=== PATIENT | male | born 1960 | race Caucasian/White ===

== ENCOUNTER 2016-12-20 05:04 | Inpatient (IN) | payer OTHER ==
[~2016-12-20] VITALS: Ht 175.3 cm; Wt 147.4 kg
[2016-12-20] MEDS ORDERED: MORPHINE SULFATE INJ 4 MG/ML DISP.SYRIN ONE (05:19)
[2016-12-20] MEDS ORDERED: ONDANSETRON HCL/PF 4 MG/2 ML VIAL ONE (05:19)
--- NOTE | 2016-12-20 05:20 | NUR ---
56 YO MALE BB RA FROM SNF. PT IS ALERT X 3, C/O CHEST PAIN. PT DESCRIBES IT "SOMEONE IS SITTING ON MY CHEST" 12/04, NON RADIATING. PT AMBULATED TO ER BED, SKIN WARM AND DRY, RR EVEN AND UNLABORED. AWAITING ORDERS FROM PROVIDER
[2016-12-20] MEDS ORDERED: ONDANSETRON HCL/PF 4 MG/2 ML VIAL IVP ONE (05:30)
[2016-12-20] MEDS ORDERED: MORPHINE SULFATE INJ 2 MG/ML DISP.SYRIN IV ONE (05:30)
--- NOTE | 2016-12-20 05:30 | NUR ---
MEDICATED PT ORDERED
--- NOTE | 2016-12-20 05:33 | NUR ---
EMT AT BED SIDE FOR EVAL
[2016-12-20 05:37] LABS: BASOPHILS # (AUTO) 0.1 /CMM (0.0-0.2); BASOPHILS % (AUTO) 0.7 % (0.0-2.0); EOSINOPHILS # (AUTO) 0.2 /CMM (0.0-0.7); EOSINOPHILS % (AUTO) 1.7 % (0.0-6.0); HEMATOCRIT 44 % (39-51); LYMPHOCYTES # (AUTO) 1.4 /CMM (0.8-4.8); LYMPHOCYTES % (AUTO) 10.4 % (20.0-44.0); MEAN CORPUSCULAR HEMOGLOBIN 27 PG (26.0-33.0); MEAN CORPUSCULAR HGB CONC 32 g/dl (31.0-36.0); MEAN CORPUSCULAR VOLUME 86 fL (80-96); MONOCYTES # (AUTO) 1.7 /CMM (0.1-1.30); MONOCYTES % (AUTO) 12.4 % (2.0-12.0); NEUTROPHILS # (AUTO) 10.1 /CMM (1.8-8.9); NEUTROPHILS % (AUTO) 74.8 % (43.0-81.0); PLATELET COUNT (AUTO) 190 /CMM (150-450); RDW COEFFICIENT OF VARIATION 18.8 (11.5-15.0); RED BLOOD CELL COUNT(AUTO) 5.12 MIL/uL (4.5-6.0); WHITE BLOOD COUNT (AUTO) 13.5 K/uL (4.3-11.0)
[2016-12-20 05:50] LABS: CALCIUM, SERUM 8.8 mg/dL (8.5-10.1); CARBON DIOXIDE 28 mmol/L (21-32); CHLORIDE 106 mmol/L (98-107); CREATININE 1.1 mg/dL (0.6-1.3); GLUCOSE 85 mg/dL (74-106); SODIUM SERUM 138 mmol/L (136-145); UREA NITROGEN, BLOOD 25 mg/dL (7-18)
[2016-12-20 05:54] LABS: INR 1.18 (0.87-1.13); PROTHROMBIN TIME 12.8 SECS (9.5-12.7)
--- NOTE | 2016-12-20 05:56 | NUR ---
TELE 316.2
[2016-12-20] MEDS ORDERED: SODIUM POLYSTYRENE SULFONATE 15 G/60 ML BOTTLE PO ONE (06:00)
[2016-12-20] MEDS ORDERED: ASPIRIN 81 MG TAB.CHEW PO ONE (06:00)
[2016-12-20] MEDS ORDERED: INSULIN REGULAR, HUMAN 100 UNIT/ML 10 ML VIAL IV ONE (06:00)
[2016-12-20] MEDS ORDERED: DEXTROSE 50%-WATER 50 ML DISP.SYRIN IV ONE (06:00)
[2016-12-20] MEDS ORDERED: SODIUM BICARBONATE SYR 50 MEQ/50 ML DISP.SYRIN IV ONE (06:00)
[2016-12-20] MEDS ORDERED: CALCIUM CHLORIDE 1,000 MG/10 ML DISP.SYRIN IV ONE (06:00)
[2016-12-20] MEDS ORDERED: FUROSEMIDE 40 MG/4 ML VIAL IV ONE (06:00)
[2016-12-20 06:02] LABS: TROPONIN I < 0.017 ng/mL (0.00-0.056)
[2016-12-20 06:04] LABS: ALANINE AMINOTRANSFERASE 22 U/L (12-78); ALBUMIN 2.6 g/dL (3.4-5.0); ALKALINE PHOSPHATASE 145 U/L (46-116); ASPARTATE AMINOTRANSFERASE 23 U/L (15-37); B-TYPE NATRIURETIC PEPTIDE 5605 PG/ML (0-125); BILIRUBIN,DIRECT 0.4 mg/dL (0.0-0.2); BILIRUBIN,TOTAL 0.7 mg/dL (0.2-1.0); TOTAL PROTEIN, SERUM 6.8 g/dL (6.4-8.2)
--- NOTE | 2016-12-20 06:19 | NUR ---
DILMA BUTTS TOOK REPORT
[2016-12-20] MEDS ORDERED: FUROSEMIDE 40 MG/4 ML VIAL ONE (06:23)
[2016-12-20] MEDS ORDERED: INSULIN REGULAR, HUMAN 100 UNIT/ML 10 ML VIAL ONE (06:25)
[2016-12-20] MEDS ORDERED: DEXTROSE 50%-WATER 50 ML DISP.SYRIN ONE (06:25)
[2016-12-20] MEDS ORDERED: SODIUM POLYSTYRENE SULFONATE 15 G/60 ML BOTTLE ONE (06:25)
[2016-12-20] MEDS ORDERED: ASPIRIN 81 MG TAB.CHEW ONE (06:25)
[2016-12-20] MEDS ORDERED: CALCIUM CHLORIDE 1,000 MG/10 ML DISP.SYRIN ONE (06:25)
[2016-12-20] MEDS ORDERED: NA P133E RC (06:30)
[2016-12-20] MEDS ORDERED: CARV3.122 PO (06:30)
[2016-12-20] MEDS ORDERED: DOCU-25 PO (06:30)
[2016-12-20] MEDS ORDERED: ATOR10TA PO (06:30)
[2016-12-20] MEDS ORDERED: PIPE3.376 IV (06:30)
[2016-12-20] MEDS ORDERED: LISI-607 PO (06:30)
[2016-12-20] MEDS ORDERED: ASPI-991 PO (06:30)
[2016-12-20] MEDS ORDERED: BISA10SU8 RC (06:30)
[2016-12-20] MEDS ORDERED: FURO-144 PO (06:30)
[2016-12-20] MEDS ORDERED: SIME80TA15 PO (06:30)
[2016-12-20] MEDS ORDERED: POTA10CA43 PO (06:30)
[2016-12-20] MEDS ORDERED: MAGN400O6 PO (06:30)
[2016-12-20] MEDS ORDERED: SENN8.6T6 PO (06:30)
[2016-12-20] MEDS ORDERED: HYDR-552 PO (06:30)
[2016-12-20] MEDS ORDERED: SPIR25TA4 PO (06:30)
--- NOTE | 2016-12-20 06:30 | NUR ---
MEDICATED PT ORDERED
--- NOTE | 2016-12-20 06:50 | NUR ---
CALLED PHARMACY FOR SODIUM BICARB. PER PHARMACY WE DO NOT CARRY SODIUM BICARB UNLESS THERE IS A CODE BLUE.
--- NOTE | 2016-12-20 07:15 | NUR ---
TRANSPORTED PT TO TELE BED WITHOUT INCIDENT
[2016-12-20] MEDS ORDERED: BISACODYL SUPP (10 MG) 10 MG/SUPP.RECT SUPP.RECT RC PRN (07:30)
[2016-12-20] MEDS ORDERED: SIMETHICONE 80 MG TAB.CHEW PO PRN (07:30)
[2016-12-20] MEDS ORDERED: Z GUARD REMEDY 2 OZ OINT TP PRN (07:30)
[2016-12-20] MEDS ORDERED: NA PHOS,M-B/NA PHOS,DI-BA 1 EA ENEMA RC PRN (07:30)
[2016-12-20] MEDS ORDERED: ACETAMINOPHEN 325 MG TABLET PO PRN (07:30)
[2016-12-20] MEDS ORDERED: MAGNESIUM HYDROXIDE 30 ML UDC PO PRN (07:30)
[2016-12-20] MEDS ORDERED: HYDROCODONE/APAP 5/325MG 1 EACH TABLET PO PRN (07:30)
[2016-12-20] MEDS ORDERED: MORPHINE SULFATE INJ 2 MG/ML DISP.SYRIN IV PRN (07:30)
[2016-12-20] MEDS ORDERED: ONDANSETRON HCL/PF 4 MG/2 ML VIAL IVP PRN (07:30)
[2016-12-20 08:00] VITALS: BP 85/53
--- NOTE | 2016-12-20 08:00 | NUR ---
SLIP INJECTOR AND APPLICATOR: ADMISSION NOTE PT TRANSFERRED FROM ER WITH CHEST PAIN FOR 1 MONTH. NO DISTRESS NOTED. NO PAIN NOTED. NO SOB NOTED. HOB ELEVATED. BLE +2 EDEMA NOTED. ELEVATED LEGS/ CONTINENT AND USES URINAL. CAN AMBULATE WITH ASSISTANCE. BLE CELLULITES. ON CARDIAC DIET. IV ON TERA. NO IV FLUIDS RUNNING. RESTING COMFORTABLY IN BED. CALL LIGHT WITHIN REACH.
[2016-12-20] MEDS: PANTOPRAZOLE 40 MG TABLET.DR PO SCH (08:43)
[2016-12-20] MEDS: DOCUSATE SODIUM 100 MG CAPSULE PO SCH (08:43)
[2016-12-20] MEDS: ASPIRIN EC 81 MG TABLET.DR PO SCH (08:43)
[2016-12-20] MEDS: ENOXAPARIN SODIUM 40 MG/0.4 ML DISP.SYRIN SQ SCH (08:47)
[2016-12-20 09:00] LABS: MAGNESIUM 2.2 mg/dL (1.8-2.4); PHOSPHORUS 3.8 mg/dL (2.5-4.9)
[2016-12-20] MEDS ORDERED: CARVEDILOL 3.125 MG TABLET PO SCH (09:00)
[2016-12-20] MEDS ORDERED: SPIRONOLACTONE 25 MG TABLET PO SCH (09:00)
[2016-12-20] MEDS ORDERED: BUMETANIDE INJ 8 MG in IV NS 0.9% 48 ML IV ONE (09:00)
[2016-12-20] MEDS ORDERED: LISINOPRIL (5MG) 5 MG TABLET PO SCH (09:00)
[2016-12-20] MEDS ORDERED: FUROSEMIDE 40 MG/4 ML VIAL IV SCH (09:00)
[2016-12-20 09:29] LABS: THYROID STIMULATING HORMONE 4.199 uIU/mL (0.358-3.74)
[2016-12-20] MEDS: LEVOFLOXACIN 750 MG /D5W 150ML 750 MG in PREMIX 1 EA IV SCH (09:55)
[2016-12-20 11:25] LABS: APPEARANCE,URINE SL CLOUDY (CLEAR); BILIRUBIN,URINE NEGATIVE (NEGATIVE); BLOOD, URINE NEGATIVE Ery/uL (NEGATIVE); COLOR,URINE YELLOW (YELLOW); KETONES,URINE NEGATIVE (NEGATIVE); LEUKOCYTE ESTERASE ,URINE NEGATIVE (NEGATIVE); NITRITE, URINE NEGATIVE (NEGATIVE); PROTEIN,URINE NEGATIVE (NEGATIVE); UGLUCOSE NEGATIVE (NEGATIVE); UROBILINOGEN,URINE 0.2 EU/dL (0.2)
--- NOTE | 2016-12-20 13:00 | NUR ---
DEBRIDEMENT AT BEDSIDE DONE BY MD ROSS ON BLE., TOLERATED WELL. LIDOCAIN GIVEN BY PRIOR TO PROCEDURE. CONSENT SIGNED BY PT. SITES CLEAN. DRESSING INTACT.
[2016-12-20] MEDS ORDERED: LIDOCAINE 1%-EPI 1:200,000 SDV 10 ML VIAL IJ ONE (14:00)
[2016-12-20 16:00] VITALS: BP 106/72
--- NOTE | 2016-12-20 18:25 | NUR ---
MED SURGE RN: CLOSING NOTE PT A/O X4. TOOK ALL MEDICATIONS ON TIME. NO ADVERSE REACTIONS NOTED. NO PAIN NOTED. NO SOB NOTED. NO N/V NOTED AFTER ADMINISTRATION OF ZOFRAN. BEDSIDE DEBRIDEMENT DONE BY MD SHERIDAN TO BLE. PT TOLERATED WELL. ALL SITES COVERED AND DRESSING INTACT. WOUND CULTURE OF RIGHT 1ST TOE PENDING. URINALYSIS PENDING. TERA IV SITE CLEAR. PATENT. NO IV FLUIDS RUNNING. RESTING COMFORTABLY IN BED. CALL LIGHT WITHIN REACH.
--- NOTE | 2016-12-20 20:00 | NUR ---
MS MEN'S GOLF COACH INITIAL NOTES PT SEEN IN BED WATCHING TV AT THIS TIME . HEPLOCK PATENT AND INTACT. NOT IN ANY DISCOMFORT NOTED. DRESSING ON BOTH LOWER LEGS DRY AND INTACT.STILL EDEMA AND CELLULITIS NOTED. SPOKE TO FL REGARDING HIS MEDICATION AND HE REFUSED TO HAVE HIS SENOKOT FOR TONIGHT BECAUSE HE'S HAVING BOWEL MOVEMENT 3 X ALREADY FOR THIS DAY AND HE'S TIRED. OFFERED SOME SNACK FOR TONIGHT AND HE STATED"OK THANK YOU". KEPT HIM WARM AND COMFORTABLE AT ALL TIMES. WILL CONTINUE TO MONITOR. PLACE CALL LIGHT AT REACH.
[2016-12-20 20:19] VITALS: BP 103/70
[2016-12-20] MEDS ORDERED: ATORVASTATIN 10 MG TABLET PO SCH (22:00)
[2016-12-20] MEDS: SENNOSIDES 8.6 MG TABLET PO SCH (22:00)
--- NOTE | 2016-12-21 | NUR ---
SALVAGE SUPERVISOR/NOTES PT SLEEPING COMFORTABLY IN BED WITHOUT ANY DISCOMFORT NOTED. KEPT HIM WARM AND COMFORTABLE AT ALL TIMES. WILL CONTINUE TO MONITOR. PLACE CALL LIGHT AT REACH.
--- NOTE | 2016-12-21 07:00 | NUR ---
MS DISTRICT MEDICAL EXAMINER CLOSING NOTES PT WOKE UP AND STARTED CLEANING AND DOING WOUND CARE TREATMENT. OFFLOAD BOTH LOWER LEGS. PICTURE ALSO TAKEN PER WOUND PROTOCOL. SLEPT WELL AND ALL NEEDS MET. STABLE NATALEE THE NIGHT AND NO SIGNS OF ANY DISCOMFORT NOTED NATALEE THE NIGHT. KEPT HIM WARM AND COMFORTABLE AT ALL TIMES. PLACE CALL LIGHT AT REACH. ENDORSE TO AM NURSE TRE/RN FOR CONTINUITY OF CARE.
[2016-12-21 07:25] LABS: BASOPHILS # (AUTO) 0.1 /CMM (0.0-0.2); BASOPHILS % (AUTO) 0.7 % (0.0-2.0); EOSINOPHILS # (AUTO) 0.2 /CMM (0.0-0.7); EOSINOPHILS % (AUTO) 1.4 % (0.0-6.0); HEMATOCRIT 43 % (39-51); HEMOGLOBIN 13.6 g/dL (13.5-17.5); LYMPHOCYTES # (AUTO) 1.1 /CMM (0.8-4.8); LYMPHOCYTES % (AUTO) 9.6 % (20.0-44.0); MEAN CORPUSCULAR HEMOGLOBIN 28 PG (26.0-33.0); MEAN CORPUSCULAR HGB CONC 32 g/dl (31.0-36.0); MEAN CORPUSCULAR VOLUME 87 fL (80-96); MONOCYTES # (AUTO) 1.7 /CMM (0.1-1.30); MONOCYTES % (AUTO) 14.2 % (2.0-12.0); NEUTROPHILS # (AUTO) 8.9 /CMM (1.8-8.9); NEUTROPHILS % (AUTO) 74.1 % (43.0-81.0); PLATELET COUNT (AUTO) 196 /CMM (150-450); RDW COEFFICIENT OF VARIATION 19.2 (11.5-15.0); RED BLOOD CELL COUNT(AUTO) 4.87 MIL/uL (4.5-6.0)
[2016-12-21 07:29] LABS: ALBUMIN 2.6 g/dL (3.4-5.0); BILIRUBIN,TOTAL 0.7 mg/dL (0.2-1.0); CALCIUM, SERUM 8.8 mg/dL (8.5-10.1); CREATININE 1.2 mg/dL (0.6-1.3); PHOSPHORUS 4.9 mg/dL (2.5-4.9); POTASSIUM 4.8 mmol/L (3.5-5.1); TOTAL PROTEIN, SERUM 6.7 g/dL (6.4-8.2)
[2016-12-21] MEDS: PANTOPRAZOLE 40 MG TABLET.DR PO SCH (07:30)
[2016-12-21 07:33] LABS: TROPONIN I 0.018 ng/mL (0.00-0.056)
--- NOTE | 2016-12-21 07:33 | NUR ---
MED SURGE RN: INITIAL NOTE PT A/OX 4. ON ROOM AIR. NO DISTRESS NOTED. NO PAIN NOTED. NO SOB NOTED. ON CARDIAC DIET. WOUNDS DRESSING INTACT. BLE EDEMA NOTED +2 PITTING. NO BLEEDING NOTED. IV RFA #18 PATENT. NO IV FLUIDS RUNNING. RESTING COMFORTABLY IN BED. CALL LIGHT WITHIN REACH.
[2016-12-21 07:35] LABS: MAGNESIUM 2.2 mg/dL (1.8-2.4)
[2016-12-21 07:44] LABS: THYROID STIMULATING HORMONE 3.096 uIU/mL (0.358-3.74)
[2016-12-21 08:00] VITALS: BP 102/69
[2016-12-21] MEDS: ASPIRIN EC 81 MG TABLET.DR PO SCH (08:05)
[2016-12-21] MEDS: LEVOFLOXACIN 750 MG /D5W 150ML 750 MG in PREMIX 1 EA IV SCH (08:06)
[2016-12-21] MEDS: ENOXAPARIN SODIUM 40 MG/0.4 ML DISP.SYRIN SQ SCH (08:15)
[2016-12-21] MEDS: DOCUSATE SODIUM 100 MG CAPSULE PO SCH (08:15)
[2016-12-21] MEDS ORDERED: BUMETANIDE INJ 8 MG in IV NS 0.9% 48 ML IV ONE (08:30)
--- NOTE | 2016-12-21 11:08 | NUR ---
WOUND CARE CONSULT: PT FOLLOWED BY ACCOUNT DEVELOPER FOR LOWER EXTREMITIES. DRESSINGS DRY AND INTACT AT THIS TIME AND NOT REMOVED. DEFER TO DPM FOR WOUND TREATMENT PLAN. PT ABLE TO TURN AND REPOSITION IN BED AND GETS UP TO COMMODE. CURRENT KIRT SCORE IS 23. RECOMMENDATIONS MADE FOR SKIN PROTECTION. DISCUSSED WITH NURSING STAFF. WILL SEE PRN. YAÑEZ IN AGREEMENT WITH PLAN OF CARE. BUTTOCK SCARS NOTED.
[2016-12-21] MEDS ORDERED: HYDROGEL DRESSING 90 GM TUBE TP PRN (11:30)
--- NOTE | 2016-12-21 11:37 | NUR ---
VERIFIED CONSENT FOR OR DEBRIDEMENT BY DR. ROSS. STATED CONSENT SHOULD SAY RIGHT AND LEFT LOWER EXTREMITY DEBRIDEMENT. NPO AT MIDNIGHT THE DAY BEFORE 12/21/16.
--- NOTE | 2016-12-21 12:45 | NUR ---
PT TAKEN DOWN TO DO MRI
[2016-12-21 13:15] LABS: *SPE A/G RATIO 0.9 (0.7-1.7); *SPE ALPHA-1-GLOBULIN 0.2 g/dL (0.0-0.4); *SPE ALPHA-2-GLOBULIN 0.6 g/dL (0.4-1.0); *SPE BETA GLOBULIN 1.1 g/dL (0.7-1.3); *SPE GLOBULIN, TOTAL 3.3 g/dL (2.2-3.9); *SPE M-SPIKE Not Observed g/dL (Not Observed); *SPE PROTEIN TOTAL 6.3 g/dL (6.0-8.5); *SPEGAMMA GLOBULIN 1.4 g/dL (0.4-1.8)
--- NOTE | 2016-12-21 14:10 | NUR ---
PT RETURNED FROM MRI PROCEDURE. NO DISTRESS NOTED. NO PAIN. RESTING IN BED COMFORTABLY.
[2016-12-21] MEDS: HYDROGEL DRESSING 90 GM TUBE TP SCH (15:45)
[2016-12-21 16:00] VITALS: BP 115/70
--- NOTE | 2016-12-21 16:18 | NUR ---
WOUND CARE: TREATMENT DONE MD ORDERED. R AND L LOWER LEGS= HYDROGEL/ MEPILEX/ AND KERLIX AND PLACE BURN NET OVER TO KEEP IN PLACE. R 2ND TOW AND LEFT 2ND TOE= APPLY BETADINE SOAKED IN GAUZE/ KERLIX. CHANGE DAILY. PT TOLERATED WELL.
--- NOTE | 2016-12-21 18:29 | NUR ---
MED SURGE RN: CLOSING NOTE PT A/0X4. NO DISTRESS NOTED. NO PAIN NOTED. NO SOB NOTED. TOOK ALL MEDICATIONS ON TIME. NO ADVERSE REACTIONS NOTED. IV ON RFA #18. SITE CLEAR, PATENT. NO IV FLUIDS RUNNING. BUMEX RUNNING FOR 8 HOURS ONLY ONCE A DAY. URINAL AT BEDSIDE AND COMMODE. WOUND CARE DONE ORDERED BY MD. PT TOLERATED WELL. SCHEDULED FOR OR WOUND DEBRIDEMENT OF BLE ON 12/22/16. SHOULD BE NPO BY MIDNIGHT. ALL CONSENTS SIGNED AND PLACED IN CHART. ATE ALL MEALS WITH NO N/V NOTED. RESTING COMFORTABLY IN BED. CALL LIGHT WITHIN REACH.
[2016-12-21 20:00] VITALS: BP 101/68
--- NOTE | 2016-12-21 20:00 | NUR ---
MS RN NOTES PATIENT RECEIVED USING HIS COMMODE NEXT TO HIS BED. NO C/O OF CHEST PAIN, NO SOB, NO ACUTE DISTRESS NOTED. TALKATIVE, A & O X 4. IV ACCESS TO RFA INTACT PATENT. NO S/S OF INFECTION AT IV SITE NOTED. BED IN LOW LOCKED POSITION. CALL LIGHT WITHIN REACH. OBSERVING CLOSELY.
[2016-12-21] MEDS: SENNOSIDES 8.6 MG TABLET PO SCH (21:35)
[2016-12-21 23:50] VITALS: BP 135/71
--- NOTE | 2016-12-22 01:00 | NUR ---
MS RN NOTES PATIENT SLEEPING COMFORTABLY IN SEMI CHOWDARY POSITION. NPO AFTER MIDNIGHT DUE TO SCHEDULED BLE DEBRIDEMENT IN AM. NO C/O PAIN NO DISCOMFORT NOTED. MONITORING CLOSELY.
--- NOTE | 2016-12-22 06:20 | NUR ---
MS RN NOTES PATIENT IS AWAKE,RESTING IN BED IN SEMI CHOWDARY POSITION. NPO SINCE MID NIGHT DUE TO BLE DEBRIDEMENT TODAY IN OR. NO C/O PAIN, NO SOB, NO ACUTE DISTRESS OR DISCOMFORT NOTED. IV ACCESS TO RFA, INTACT PATENT. SLEPT WELL AT NIGHT. BED IN LOW LOCKED POSITION. CALL LIGHT WITHIN REACH. WILL CONTINUE TO OBSERVE & WILL ENDORSE TO AM SHIFT NURSE.
--- NOTE | 2016-12-22 07:15 | NUR ---
RN MS NOTES PATIENT ALERT AND ORIENTED, NO DISTRESS NOTED, BREATHING EVEN AND UNLABORED, DENIES PAIN OR DISCOMFORT, PATIENT IS CURRENTLY NPO FOR WOUND DEBRIDEMENT TODAY, CONSENT SIGNED, CHECKLIST COMPLETED, NEEDS ATTENDED AND MET, SAFETY MEASURES IN PLACED, CALL LIGHT WITHIN REACH, WILL CONTINUE TO MONITOR.
[2016-12-22 07:27] LABS: ALBUMIN 2.6 g/dL (3.4-5.0); BILIRUBIN,TOTAL 0.7 mg/dL (0.2-1.0); CALCIUM, SERUM 8.6 mg/dL (8.5-10.1); CREATININE 1.1 mg/dL (0.6-1.3); PHOSPHORUS 4.3 mg/dL (2.5-4.9); POTASSIUM 4.1 mmol/L (3.5-5.1); TOTAL PROTEIN, SERUM 6.8 g/dL (6.4-8.2)
[2016-12-22] MEDS ORDERED: BUMETANIDE INJ 8 MG in IV NS 0.9% 48 ML IV ONE (07:30)
[2016-12-22] MEDS: PANTOPRAZOLE 40 MG TABLET.DR PO SCH (07:30)
[2016-12-22 07:38] LABS: BASOPHILS # (AUTO) 0.1 /CMM (0.0-0.2); BASOPHILS % (AUTO) 0.8 % (0.0-2.0); EOSINOPHILS # (AUTO) 0.2 /CMM (0.0-0.7); EOSINOPHILS % (AUTO) 1.4 % (0.0-6.0); HEMATOCRIT 43 % (39-51); HEMOGLOBIN 13.5 g/dL (13.5-17.5); LYMPHOCYTES # (AUTO) 1.2 /CMM (0.8-4.8); LYMPHOCYTES % (AUTO) 10.2 % (20.0-44.0); MEAN CORPUSCULAR HEMOGLOBIN 27 PG (26.0-33.0); MEAN CORPUSCULAR HGB CONC 32 g/dl (31.0-36.0); MEAN CORPUSCULAR VOLUME 87 fL (80-96); MONOCYTES # (AUTO) 1.6 /CMM (0.1-1.30); MONOCYTES % (AUTO) 13.4 % (2.0-12.0); NEUTROPHILS # (AUTO) 8.7 /CMM (1.8-8.9); NEUTROPHILS % (AUTO) 74.2 % (43.0-81.0); PLATELET COUNT (AUTO) 228 /CMM (150-450); RED BLOOD CELL COUNT(AUTO) 4.94 MIL/uL (4.5-6.0); WHITE BLOOD COUNT (AUTO) 11.7 K/uL (4.3-11.0)
[2016-12-22 08:00] VITALS: BP 93/56
[2016-12-22] MEDS: HYDROGEL DRESSING 90 GM TUBE TP SCH (08:56)
[2016-12-22] MEDS: DOCUSATE SODIUM 100 MG CAPSULE PO SCH (08:56)
[2016-12-22] MEDS: ASPIRIN EC 81 MG TABLET.DR PO SCH (08:56)
[2016-12-22] MEDS: ENOXAPARIN SODIUM 40 MG/0.4 ML DISP.SYRIN SQ SCH (08:56)
[2016-12-22] MEDS: LEVOFLOXACIN 750 MG /D5W 150ML 750 MG in PREMIX 1 EA IV SCH (10:07)
--- NOTE | 2016-12-22 12:00 | NUR ---
RN MS NOTES PATIENT BROUGHT TO OR FOR WOUND DEBRIDEMENT
[2016-12-22] MEDS ORDERED: FENTANYL PF 100MCG/2ML AMPUL ONE (12:03)
[2016-12-22] MEDS ORDERED: MIDAZOLAM HCL 2 MG/2ML VIAL ONE (12:03)
[2016-12-22] MEDS ORDERED: LIDOCAINE 1% INJ 50 ML MDV IJ ONE (12:05)
[2016-12-22] MEDS ORDERED: BUPIVACAINE MPF W/EPI 0.25% 30 ML VIAL ONE (12:05)
--- NOTE | 2016-12-22 13:54 | NUR ---
RN MS NOTES PATIENT CAME BACK FROM OR DEPARTMENT, ALERT AND ORIENTED, NO S/SX OF DISTRESS, KEPT BLE ELEVATED, WILL CONTINUE TO MONITOR.
[2016-12-22 14:03] VITALS: BP 145/78
[2016-12-22] MEDS ORDERED: BUPIVACAINE 0.5 % PF 150 MG/30 ML VIAL ONE (14:25)
[2016-12-22] MEDS ORDERED: ANESTHESIA TRAY IN PYXIS 1 EA TRAY MC ONE (14:25)
--- NOTE | 2016-12-22 14:27 | NUR ---
RN MS NOTES PATIENT ATE LUNCH AND TOLERATED WELL, RECEIVED WITH HR 100, 99.9 TEMP, OFFERED TYLENOL, BUT PATIENT REFUSED, SPO2 IN ROOM AIR 86-90%, O2 AT 2LPM VIA NC ADMINISTERED WITH SPO2 OF 94-95%, PATIENT OBSERVED REMOVING NASAL CANNULA AT TIMES, RE-EDUCATED OF O2 BENEFITS AND RISKS, AND VERBALIZED UNDERSTANDING, IV MEDICATION RESUMED, PARTNER AT BEDSIDE, WILL CONTINUE TO MONITOR.
[2016-12-22 16:00] VITALS: BP 96/58
--- NOTE | 2016-12-22 19:53 | NUR ---
RN MS NOTES PATIENT ALERT AND ORIENTED X3, NO DISTRESS NOTED, DENIES PAIN OR DISCOMFORT, WOUND DRESSING ON BLE DRY AND INTACT, NO BLEEDING NOTED, BLE ELEVATED AT ALL TIMES, PARTNER AT BEDSIDE, ALL NEEDS ATTENDED AND MET, CALL LIGHT WITHIN REACH, VITAL SIGNS STABLE, AFEBRILE,SAFETY MEASURES IN PLACED, WILL ENDORSE TO AGENCY OWNER FOR THIERRY.
[2016-12-22 20:00] VITALS: BP 102/72
--- NOTE | 2016-12-22 20:00 | NUR ---
MS RN NOTES PATIENT RECEIVED SITTING IN BED, NO C/O CHEST PAIN NO DISCOMFORT NOTED AT THIS TIME. ASSESSED BLE, NO S/S OF BLEEDING OR DRAINAGE NOTED. IV ACCESS TO RFA, INTACT PATENT. INFORMED HIM TO ELEVATE HIS BLE TO DECREASE SWELLING & DISCOMFORT. BED IN LOW LOCKED POSITION. CALL LIGHT WITHIN REACH. WILL MONITOR CLOSELY.
[2016-12-22] MEDS: SENNOSIDES 8.6 MG TABLET PO SCH (22:00)
[2016-12-22 23:57] VITALS: BP 102/78
--- NOTE | 2016-12-23 02:05 | NUR ---
MS RN NOTES PATIENT SLEEPING INTERMITTENTLY. ASKED FOR SNACK, SNACK PROVIDED. NO C/O PAIN, NO DISCOMFORT NOTED. CALL LIGHT WITHIN REACH. OBSERVING CLOSELY.
--- NOTE | 2016-12-23 06:40 | NUR ---
MS RN NOTES PATIENT SLEPT INTERMITTENTLY, WATCHED TV IN BETWEEN. NO DISCOMFORT, NO C/O CHEST PAIN, RESP EVEN & NON LABORED. IN SEMI CHOWDARY POSITION. HAD SNACK IN BETWEEN AT NIGHT. NO BLEEDING/DRAINAGE NOTED AT WOUND DEBRIDEMENT SITE. DRESSING INTACT & CLEAN. ELEVATED BLE ORDERED. IN STABLE CONDITION. BED IN LOW LOCKED POSITION. CALL LIGHT WITHIN REACH. WILL ENDORSE TO AM SHIFT.
[2016-12-23 07:26] LABS: BASOPHILS # (AUTO) 0.1 /CMM (0.0-0.2); BASOPHILS % (AUTO) 0.6 % (0.0-2.0); EOSINOPHILS # (AUTO) 0.1 /CMM (0.0-0.7); EOSINOPHILS % (AUTO) 0.7 % (0.0-6.0); HEMATOCRIT 41 % (39-51); HEMOGLOBIN 13.3 g/dL (13.5-17.5); LYMPHOCYTES # (AUTO) 1.2 /CMM (0.8-4.8); LYMPHOCYTES % (AUTO) 10.1 % (20.0-44.0); MEAN CORPUSCULAR HEMOGLOBIN 28 PG (26.0-33.0); MEAN CORPUSCULAR HGB CONC 33 g/dl (31.0-36.0); MEAN CORPUSCULAR VOLUME 86 fL (80-96); MONOCYTES # (AUTO) 1.5 /CMM (0.1-1.30); MONOCYTES % (AUTO) 12.5 % (2.0-12.0); NEUTROPHILS # (AUTO) 9.1 /CMM (1.8-8.9); NEUTROPHILS % (AUTO) 76.1 % (43.0-81.0); PLATELET COUNT (AUTO) 232 /CMM (150-450); RDW COEFFICIENT OF VARIATION 19.1 (11.5-15.0); RED BLOOD CELL COUNT(AUTO) 4.72 MIL/uL (4.5-6.0); WHITE BLOOD COUNT (AUTO) 11.9 K/uL (4.3-11.0)
[2016-12-23] MEDS: PANTOPRAZOLE 40 MG TABLET.DR PO SCH (07:30)
--- NOTE | 2016-12-23 07:50 | NUR ---
m/s sap administrator: vascular f/u seen by dr. calderon with orders. orders acknowledged. consent obtained from pt re: cta abdominal aorta with runoff. x-ray tech at bedside and will sweet pickle maker pt in a couple of hours. breakfast served with hob elevated.
[2016-12-23 07:53] LABS: ALBUMIN 2.5 g/dL (3.4-5.0); BILIRUBIN,TOTAL 0.7 mg/dL (0.2-1.0); CALCIUM, SERUM 8.5 mg/dL (8.5-10.1); CREATININE 1.2 mg/dL (0.6-1.3); MAGNESIUM 1.9 mg/dL (1.8-2.4); PHOSPHORUS 3.9 mg/dL (2.5-4.9); POTASSIUM 3.9 mmol/L (3.5-5.1); TOTAL PROTEIN, SERUM 6.7 g/dL (6.4-8.2)
[2016-12-23 08:00] VITALS: BP 108/59
--- NOTE | 2016-12-23 08:00 | NUR ---
m/s billet grinder: cardio f/u seen and examined by dr. campuzano with orders. orders acknowledged.
[2016-12-23] MEDS: ASPIRIN EC 81 MG TABLET.DR PO SCH (08:28)
[2016-12-23] MEDS: POTASSIUM CHLORIDE 20 MEQ TAB.PRT.SR PO SCH ×2 (08:28→09:55)
[2016-12-23] MEDS: DOCUSATE SODIUM 100 MG CAPSULE PO SCH (08:29)
[2016-12-23] MEDS: ENOXAPARIN SODIUM 40 MG/0.4 ML DISP.SYRIN SQ SCH (08:29)
[2016-12-23] MEDS: HYDROGEL DRESSING 90 GM TUBE TP SCH (09:00)
[2016-12-23] MEDS ORDERED: BUMETANIDE INJ 8 MG in IV NS 0.9% 48 ML IV ONE (09:00)
[2016-12-23] MEDS: LEVOFLOXACIN 750 MG /D5W 150ML 750 MG in PREMIX 1 EA IV SCH (09:06)
--- NOTE | 2016-12-23 09:30 | NUR ---
m/s molded goods controls operator: dpm f/u seen by dr. finley and tx done to ble wounds, mary. well with verbal order to d'c hydrogel tx. order read back and carried out.
[2016-12-23] MEDS ORDERED: LINEZOLID RTU BAG 600 MG in PREMIX 1 EA IV SCH (11:30)
[2016-12-23] MEDS ORDERED: IV NS 0.9% 250 ML IV ONE (11:39)
[2016-12-23] MEDS ORDERED: IOHEXOL-350 100 ML VIAL IV ONE (11:39)
[2016-12-23 16:00] VITALS: BP 110/61
--- NOTE | 2016-12-23 17:00 | NUR ---
m/s retoucher photoengraving: id f/u seen by dr. boucher with orders. orders acknowledged. pt resting quietly in bed with girlfriend at bedside.
--- NOTE | 2016-12-23 18:45 | NUR ---
m/s client server programmer: notes resting comfortable in bed with call light within reach. needs attended. no apparent distress noted. will continue to monitor.
--- NOTE | 2016-12-23 19:30 | NUR ---
RN OPEN NOTES RECEIVED PATIENT AWAKE IN BED. A/O X3. NO SIGNS OF DISTRESS OR DISCOMFORT. BREATHING EVEN AND UNLABORED. IV ACCESS IN RFA WITH BUMEX CURRENTLY INFUSING, PATENT AND INTACT, NO SIGNS OF REDNESS OR INFILTRATION. DRESSINGS ON BLE C/D/I. ALL NEEDS MET. NO SIGNIFICANT CHANGES THROUGH THE NIGHT. BED IN LOW LOCKED POSITION WITH SIDE RAIL X2. CALL LIGHT WITHIN REACH. WILL CONTINUE TO MONITOR.
[2016-12-23 20:00] VITALS: BP 104/68
[2016-12-23 20:21] VITALS: BP 104/68
[2016-12-23] MEDS: MEROPENEM 1 G in IV NS 0.9% 100 ML IV SCH (21:38)
[2016-12-23] MEDS: SENNOSIDES 8.6 MG TABLET PO SCH (21:48)
[2016-12-24] MEDS: MEROPENEM 1 G in IV NS 0.9% 100 ML IV SCH ×3 (05:47→21:17)
[2016-12-24 07:54] LABS: ALBUMIN 2.7 g/dL (3.4-5.0); BILIRUBIN,TOTAL 0.9 mg/dL (0.2-1.0); CALCIUM, SERUM 8.7 mg/dL (8.5-10.1); CREATININE 1.2 mg/dL (0.6-1.3); MAGNESIUM 1.9 mg/dL (1.8-2.4); PHOSPHORUS 3.8 mg/dL (2.5-4.9); POTASSIUM 3.6 mmol/L (3.5-5.1); TOTAL PROTEIN, SERUM 6.7 g/dL (6.4-8.2)
--- NOTE | 2016-12-24 07:56 | NUR ---
RN CLOSING NOTES PATIENT AWAKE IN BED. A/O X3. NO SIGNS OF DISTRESS OR DISCOMFORT. BREATHING EVEN AND UNLABORED. IV ACCESS IN RFA, PATENT AND INTACT, NO SIGNS OF REDNESS OR INFILTRATION. DRESSINGS ON BLE C/D/I. ALL NEEDS MET. NO SIGNIFICANT CHANGES THROUGH THE NIGHT. BED IN LOW LOCKED POSITION WITH SIDE RAIL X2. CALL LIGHT WITHIN REACH. ENDORSED TO AM SHIFT FOR THIERRY.
[2016-12-24 08:00] VITALS: BP 97/63
[2016-12-24] MEDS ORDERED: BUMETANIDE INJ 8 MG in IV NS 0.9% 48 ML IV ONE (08:00)
--- NOTE | 2016-12-24 08:01 | NUR ---
RN NOTES RECEIVED PT. PT IS STABLE AND RESTING IN BED. A/OX3. NO S/S OF DISTRESS OR SOB. NO C/O PAIN AT THIS MOMENT. IV ACCESS LOCATED ON RIGHT FA, 18G CURRENTLY SL. NOTIFIED BY LAB THAT PT CO2 LEVEL = 41. WILL F/U WITH AND NOTIFY PROVIDER. SAFETY MEASURES IN PLACE, CALL LIGHT WITHIN REACH. WILL CONTINUE TO MONITOR.
[2016-12-24] MEDS: DOCUSATE SODIUM 100 MG CAPSULE PO SCH ×2 (09:00→09:08)
[2016-12-24] MEDS: PANTOPRAZOLE 40 MG TABLET.DR PO SCH (09:08)
[2016-12-24] MEDS: ASPIRIN EC 81 MG TABLET.DR PO SCH (09:08)
[2016-12-24] MEDS: ENOXAPARIN SODIUM 40 MG/0.4 ML DISP.SYRIN SQ SCH (09:10)
[2016-12-24] MEDS: POTASSIUM CHLORIDE 20 MEQ TAB.PRT.SR PO SCH ×3 (09:17→13:46)
[2016-12-24 16:00] VITALS: BP 96/70
--- NOTE | 2016-12-24 19:15 | NUR ---
MS RN OPENING NOTES: RECEIVED PT IN BED AND IS RESTING W/ HOB SEMI-CHOWDARY'S. GIRLFRIEND AT BEDSIDE. PT IS A/OX3. NO S/S OF DISTRESS OR SOB NOTED AT THIS TIME. PT DENIES ANY PAIN. PT HAS PICC LINE INSERTED IN R UPPER ARM AND IN INTACT AND PATENT WITH BUMEX BEING RAN. CALL LIGHT WITHIN PT'S REACH. BED KEPT IN LOW, LOCKED POSITION, AND SIDE RAILS X 2 UP. WILL CONTINUE TO MONITOR PT.
--- NOTE | 2016-12-24 19:47 | NUR ---
RN CLOSING NOTES PT IS IN BED RESTING. A/OX3. NO S/S OF DISTRESS OR SOB. NO C/O PAIN AT THIS TIME. DRESSING CHANGE PERFORMED FOR LE. PICC LINE INSERTED IN RIGHT EXTREMITY, INTACT AND PATENT. SAFETY MEASURES IN PLACE, CALL LIGHT IN REACH. WILL ENDORSE TO OUTSIDE PLANT FIELD ENGINEER FOR THIERRY.
[2016-12-24 20:00] VITALS: BP 103/69
[2016-12-24] MEDS: SENNOSIDES 8.6 MG TABLET PO SCH (21:35)
--- NOTE | 2016-12-24 21:36 | NUR ---
MS RN NOTES: PT IS REFUSING SENOKOT. PT VERBALIZED THAT HE IS HAVING DIARRHEA AND DOES NOT WANT TO TAKE SENOKOT.
[2016-12-25] MEDS: MEROPENEM 1 G in IV NS 0.9% 100 ML IV SCH ×2 (04:36→13:00)
--- NOTE | 2016-12-25 07:15 | NUR ---
MS RN CLOSING NOTES: ALL NEEDS WERE ATTENDED AND ANTICIPATED FOR. PT IS RESTING UP IN BED. PT IS AWAKE W/ HOB SEMI-CHOWDARY'S. PT IS A/OX3. NO S/S OF DISTRESS OR SOB NOTED AT THIS TIME. PT DENIES ANY PAIN. PT HAS PICC LINE INSERTED IN R UPPER ARM AND IN INTACT AND PATENT. CALL LIGHT WITHIN PT'S REACH. BED KEPT IN LOW, LOCKED POSITION, AND SIDE RAILS X 2 UP. ENDORSED TO AM NURSE FOR THIERRY.
[2016-12-25] MEDS: PANTOPRAZOLE 40 MG TABLET.DR PO SCH (07:30)
[2016-12-25 08:00] VITALS: BP 124/54
[2016-12-25] MEDS: ASPIRIN EC 81 MG TABLET.DR PO SCH (08:47)
[2016-12-25] MEDS: ENOXAPARIN SODIUM 40 MG/0.4 ML DISP.SYRIN SQ SCH (08:49)
[2016-12-25] MEDS: DOCUSATE SODIUM 100 MG CAPSULE PO SCH (08:49)
--- NOTE | 2016-12-25 14:24 | NUR ---
MS AIR SAMPLER NOTE: PATIENT DISCHARGE TO [facility] [address] [place] [address] VIA AMBULANCE REPORT GIVEN TO TIA RN IN SNF . PATIENT IN STABLE CONDITION NO S/S DISTRESS NOTED, VSS WNL, PATIENT WOUND DONE PER ORDER PICTURE TAKEN AND PLACED IN THE CHART, EXIT CARE DONE PRINTED SIGN AND GIVEN TO PT ALL BELONGINGS RETURNED TO PATIENT.
== END 2016-12-25 13:50 | DRG 951 ==
LOC: ER 05:08 → TELE 05:52 → MED 09:00
PROVIDERS: ADMIT Internal Medicine; ATTEND Internal Medicine
PROC: 0JBP0ZZ Excision of Left Lower Leg Subcutaneous Tissue and Fascia, Open Approach (ICD-10-PCS; principal; 2016-12-20)
PROC: 0JBN0ZZ Excision of Right Lower Leg Subcutaneous Tissue and Fascia, Open Approach (ICD-10-PCS; principal; 2016-12-20)
PROC: 0JBN0ZZ Excision of Right Lower Leg Subcutaneous Tissue and Fascia, Open Approach (ICD-10-PCS; 2016-12-22)
PROC: 0QBR0ZZ Excision of Left Toe Phalanx, Open Approach (ICD-10-PCS; 2016-12-22)
PROC: 0JBP0ZZ Excision of Left Lower Leg Subcutaneous Tissue and Fascia, Open Approach (ICD-10-PCS; 2016-12-22)
PROC: 02HV33Z Insertion of Infusion Device into Superior Vena Cava, Percutaneous Approach (ICD-10-PCS; 2016-12-24)
PROC: B548ZZA Ultrasonography of Superior Vena Cava, Guidance (ICD-10-PCS; 2016-12-24)
DX: I11.0 Hypertensive heart disease with heart failure (principal); J96.01 Acute respiratory failure with hypoxia; E43 Unspecified severe protein-calorie malnutrition; D68.59 Other primary thrombophilia; E11.52 Type 2 diabetes mellitus with diabetic peripheral angiopathy with gangrene; I42.9 Cardiomyopathy, unspecified; M00.9 Pyogenic arthritis, unspecified; E11.40 Type 2 diabetes mellitus with diabetic neuropathy, unspecified; E11.621 Type 2 diabetes mellitus with foot ulcer; E11.69 Type 2 diabetes mellitus with other specified complication; I50.31 Acute diastolic (congestive) heart failure; I48.91 Unspecified atrial fibrillation; L03.115 Cellulitis of right lower limb; L03.116 Cellulitis of left lower limb; L97.529 Non-pressure chronic ulcer of other part of left foot with unspecified severity; M86.60 Other chronic osteomyelitis, unspecified site; E66.01 Morbid (severe) obesity due to excess calories; E78.5 Hyperlipidemia, unspecified; E87.5 Hyperkalemia; I25.10 Atherosclerotic heart disease of native coronary artery without angina pectoris; Z68.42 Body mass index [BMI] 45.0-49.9, adult; I83.028 Varicose veins of left lower extremity with ulcer other part of lower leg; L97.829 Non-pressure chronic ulcer of other part of left lower leg with unspecified severity; I83.018 Varicose veins of right lower extremity with ulcer other part of lower leg; L97.819 Non-pressure chronic ulcer of other part of right lower leg with unspecified severity; M86.172 Other acute osteomyelitis, left ankle and foot; Z89.421 Acquired absence of other right toe(s)
CPT/HCPCS: 36415; 36569; 71010-TC; 73630-TC; 73718-TC; 80048-TC; 80053-TC; 80061-TC; 80076-TC; 81000-TC; 82306; 82962-TC; 83735-TC; 83880; 84100-TC; 84155; 84165; 84439-TC; 84443-TC; 84484-TC; 85025-TC; 85652-TC; 85730-TC; 87070-TC; 87081-TC; 87186-TC; 93307-TC; A4216; A4606; A6209; A6248; A6402; A6403; C1751; J1650; J1815; J1940; J1956; J2020; J2185; J2250; J2270; J2405; J2704; J3010; J3490; J7030; J7050; Q9967; Z7610

== ENCOUNTER 2020-08-18 11:23 | Inpatient (IN) | payer OTHER ==
[~2020-08-18] VITALS: Ht 182.9 cm; Wt 117.7 kg
[~2020-08-18 11:23] MED LIST: ASPI-1420 PO; ATOR10TA PO; BISA10SU8 RC; CARV3.122 PO; DOCU-141 PO; FURO-144 PO; HYDR-4384 PO; LISI-768 PO; MAGN400O6 PO; NA P133E RC; PIPE3.376 IV; SENN-261 PO; SIME80TA15 PO; SPIR25TA6 PO
[2020-08-18] MEDS ORDERED: CEFEPIME 1 GM in IV D5W 50 ML IV ONE (12:00)
[2020-08-18 12:02] LABS: BASOPHILS # (AUTO) 0.2 /CMM (0.0-0.2); BASOPHILS % (AUTO) 1.1 % (0.0-2.0); EOSINOPHILS % (AUTO) 1.4 % (0.0-6.0); HEMATOCRIT 43 % (39-51); HEMOGLOBIN 13.8 g/dL (13.5-17.5); LYMPHOCYTES # (AUTO) 1.8 /CMM (0.8-4.8); LYMPHOCYTES % (AUTO) 9.8 % (20.0-44.0); MEAN CORPUSCULAR HGB CONC 32 g/dl (31.0-36.0); MEAN CORPUSCULAR VOLUME 87 fL (80-96); MONOCYTES # (AUTO) 1.5 /CMM (0.1-1.30); MONOCYTES % (AUTO) 8.4 % (2.0-12.0); NEUTROPHILS # (AUTO) 14.2 /CMM (1.8-8.9); NEUTROPHILS % (AUTO) 79.3 % (43.0-81.0); PLATELET COUNT (AUTO) 473 /CMM (150-450); RED BLOOD CELL COUNT(AUTO) 4.88 MIL/uL (4.5-6.0); WHITE BLOOD COUNT (AUTO) 17.9 K/uL (4.3-11.0)
[2020-08-18 12:08] LABS: CALCIUM, SERUM 9.4 mg/dL (8.5-10.1); CARBON DIOXIDE 28 mmol/L (21-32); CHLORIDE 99 mmol/L (98-107); CREATININE 1.4 mg/dL (0.6-1.3); GLUCOSE 107 mg/dL (74-106); POTASSIUM 4.1 mmol/L (3.5-5.1); SODIUM SERUM 136 mmol/L (136-145); UREA NITROGEN, BLOOD 23 mg/dL (7-18)
--- NOTE | 2020-08-18 12:08 | NUR ---
[id number] FROM AN URGENTCARE C/O BLE PAIN X 1 WEEK. PROVIDER CALLED 911 PER PARAMEDICS, PROVIDER UNABLE TO TREAT PATIENT. PT AAOX4, VSS. RR EVEN & UNLABORED. DENIES CP, SOB, DIZZINESS, N/V AT THIS TIME. PT SEEN & EVAL'D BY DR. MILLER. MEDICATED ORDERED, PT CHUCK WELL. WILL CONT TO MONITOR.
[2020-08-18 12:15] LABS: ALANINE AMINOTRANSFERASE 17 U/L (12-78); ALBUMIN 3.2 g/dL (3.4-5.0); ALKALINE PHOSPHATASE 179 U/L (46-116); ASPARTATE AMINOTRANSFERASE 20 U/L (15-37); BILIRUBIN,DIRECT 0.2 mg/dL (0.0-0.2); BILIRUBIN,TOTAL 1.3 mg/dL (0.2-1.0); TOTAL PROTEIN, SERUM 7.6 g/dL (6.4-8.2)
[2020-08-18] MEDS ORDERED: DULO20CA PO (12:46)
[2020-08-18] MEDS ORDERED: METF-440 PO (12:46)
[2020-08-18] MEDS ORDERED: GLIM1TAB18 PO (12:46)
[2020-08-18] MEDS ORDERED: METO25TA20 PO (12:46)
[2020-08-18] MEDS ORDERED: ALLO300T2 PO (12:46)
--- NOTE | 2020-08-18 13:17 | NUR ---
DR MILLER TALKING TO MD GARG AT [facility] FOR PLAN OF CARE.
--- NOTE | 2020-08-18 13:48 | NUR ---
LAB CALLED RE: COVID NEGATIVE RESULT.
--- NOTE | 2020-08-18 14:02 | NUR ---
PT RESTING, VSS, RR EVEN & UNALABORED. NAD NOTED AT THIS THIS TIME. WILL CONT TO MONITOR. AWAITING TRANSFER TO [facility].
--- NOTE | 2020-08-18 15:45 | NUR ---
WATER SERVER NOTE RECEIVED PT IN BED 306-1. PT AWAKE IN BED. A/O X3 AND CROATIAN SPEAKING. NO COMPLAINT OF PAIN OR NAUSEA. CURRENTLY ON RA WITH NO SOB OR RESPIRATORY DISTRESS PRESENT. NO EDEMA PRESENT. SKIN REDNESS ON RLE AND ULCERS PRESENT ON B FEET. R FA REDNESS PRESENT. PICTURES TAKEN AND WOUND CONSULT ORDERED. SELF AMBULATORY WITH STANDBY ASSIST. HL PRESENT ON R AC 22G. SAFETY MEASURES IN PLACE. SIDE RAILS RAISED. BED LOWERED. CALL LIGHT WITHIN REACH. WILL CONTINUE TO MONITOR.
[2020-08-18] MEDS ORDERED: MAGNESIUM HYDROXIDE 30 ML UDC PO PRN (17:00)
[2020-08-18] MEDS ORDERED: MAG HYDROX/AL HYDROX/SIMETH 30 ML UDC PO PRN (17:00)
[2020-08-18] MEDS ORDERED: ACETAMINOPHEN 325 MG TABLET PO PRN (17:00)
[2020-08-18] MEDS ORDERED: HYDROCODONE/APAP 5/325MG TABLET PO PRN (17:00)
[2020-08-18] MEDS ORDERED: MORPHINE SULFATE INJ 2 MG/ML DISP.SYRIN IV PRN (17:00)
[2020-08-18] MEDS ORDERED: ONDANSETRON HCL/PF 4 MG/2 ML VIAL IVP PRN (17:00)
[2020-08-18] MEDS ORDERED: IV 1/2NS 1000 ML 1,000 ML IV PRN (17:00)
[2020-08-18] MEDS ORDERED: ZOLPIDEM TARTRATE 5 MG TABLET PO PRN (17:00)
[2020-08-18] MEDS ORDERED: Z GUARD REMEDY 2 OZ OINT TP PRN (17:00)
[2020-08-18 17:04] VITALS: BP 97/56
[2020-08-18 17:12] VITALS: BP 97/56
--- NOTE | 2020-08-18 19:30 | NUR ---
RN OPENING NOTE PATIENT IN BED AWAKE, A/O X 4. ABLE TO MAKE NEEDS KNOWN. BREATHING EVEN AND UNLABORED, TOLERATING ROOM AIR. BLE REDNESS PRESENT, ULCERS PRESENT ON BOTH FEET WELL. PATIEMT DOES NOT COMPLAIN OF PAIN OR DISCOMFORT AT THIS TIME. SAFETY MEASURES IN PLACE: BED IN LOCKED AND LOWEST POSITION, SIDE RAILS UP, CALL LIGHT WITHIN REACH. WILL MONITOR PATIENT CLOSELY.
--- NOTE | 2020-08-18 19:38 | NUR ---
RN CLOSING NOTE PT AWAKE IN BED. A/O X3 AND UKRAINIAN SPEAKING. NO COMPLAINT OF PAIN OR NAUSEA. CURRENTLY ON RA WITH NO SOB OR RESPIRATORY DISTRESS PRESENT. NO EDEMA PRESENT. SKIN REDNESS ON RLE AND ULCERS PRESENT ON B FEET. R FA REDNESS PRESENT. PICTURES TAKEN AND WOUND CONSULT ORDERED. SELF AMBULATORY WITH STANDBY ASSIST. HL PRESENT ON R AC 22G. SAFETY MEASURES IN PLACE. SIDE RAILS RAISED. BED LOWERED. CALL LIGHT WITHIN REACH. REPORT GIVEN TO NIGHT NURSE FOR THIERRY.
[2020-08-18 20:00] VITALS: BP 111/50
[2020-08-18] MEDS: HEPARIN SODIUM, PORCINE 5000 UNITS/1 ML VIAL SQ SCH (21:45)
--- NOTE | 2020-08-18 23:45 | NUR ---
R HAND 22 G INSERTED.
[2020-08-19] MEDS: CEFEPIME 2 GM in IV D5W 100 ML IV SCH ×2 (00:05→11:00)
[2020-08-19 06:23] LABS: BASOPHILS # (AUTO) 0.1 /CMM (0.0-0.2); BASOPHILS % (AUTO) 0.8 % (0.0-2.0); EOSINOPHILS % (AUTO) 3.2 % (0.0-6.0); HEMATOCRIT 39 % (39-51); HEMOGLOBIN 12.7 g/dL (13.5-17.5); LYMPHOCYTES # (AUTO) 1.5 /CMM (0.8-4.8); LYMPHOCYTES % (AUTO) 12.7 % (20.0-44.0); MEAN CORPUSCULAR HGB CONC 32 g/dl (31.0-36.0); MEAN CORPUSCULAR VOLUME 88 fL (80-96); MONOCYTES # (AUTO) 1.2 /CMM (0.1-1.30); MONOCYTES % (AUTO) 10.4 % (2.0-12.0); NEUTROPHILS # (AUTO) 8.4 /CMM (1.8-8.9); NEUTROPHILS % (AUTO) 72.9 % (43.0-81.0); PLATELET COUNT (AUTO) 384 /CMM (150-450); RED BLOOD CELL COUNT(AUTO) 4.48 MIL/uL (4.5-6.0); WHITE BLOOD COUNT (AUTO) 11.5 K/uL (4.3-11.0)
--- NOTE | 2020-08-19 06:54 | NUR ---
RN CLOSING NOTE PATIENT IN ROOM, EYES CLOSED. EASILY AWAKENED. PATIENT IS A/O X 4. BREATHING EVEN AND UNLABORED. IV ACCESS INTACT, IV FLUIDS RUNNING WELL. NO REPORTS OF PAIN OR DISCOMFORT. ALL NEEDS MET AND ATTENDED. ALL SAFETY MEASURES MAINTAINED. WILL ENDORSE TO DAY SHIFT NURSE FOR THIERRY.
[2020-08-19 07:05] LABS: CALCIUM, SERUM 9.6 mg/dL (8.5-10.1); MAGNESIUM 1.8 mg/dL (1.8-2.4); PHOSPHORUS 3.2 mg/dL (2.5-4.9); POTASSIUM 3.7 mmol/L (3.5-5.1)
--- NOTE | 2020-08-19 07:16 | NUR ---
RN OPENING NOTE PATIENT IN BED AWAKE, A/O X 4. ABLE TO MAKE NEEDS KNOWN. BREATHING EVEN AND UNLABORED, TOLERATING ROOM AIR. NO SIGNS OF DISTRESS NOTED BLE REDNESS PRESENT, ULCERS PRESENT ON BOTH FEET WELL. IV ACCESS NOTED ON RIGHT HAND # 22 GAUGE RUNNING 1/2 NS @ 75ML/HR. IV PATENT AND INTACT. PATIENT DOES NOT COMPLAIN OF PAIN OR DISCOMFORT AT THIS TIME. SAFETY MEASURES IN PLACE: BED IN LOCKED AND LOWEST POSITION, SIDE RAILS UP, CALL LIGHT WITHIN REACH. WILL MONITOR PATIENT.
[2020-08-19 08:00] VITALS: BP 142/91
[2020-08-19] MEDS: PANTOPRAZOLE 40 MG TABLET.DR PO SCH (08:02)
[2020-08-19] MEDS: HEPARIN SODIUM, PORCINE 5000 UNITS/1 ML VIAL SQ SCH ×2 (08:06→22:19)
--- NOTE | 2020-08-19 08:06 | NUR ---
WOUND CARE CONSULT: PT PRESENTS WITH DISCOLORED TOES/DRY TOE WOUNDS, PRESENT ON ADMISSION. DR DUMONT NOTIFIED OF DPM CONSULT. CURRENT KIRT SCORE IS 22. MD IN AGREEMENT WITH PLAN OF CARE.
--- NOTE | 2020-08-19 09:00 | NUR ---
RN NOTE OBTAIN U/A SPECIMEN. NOTIFIED LAB SPECIMEN IS READY FOR PROJECT COACH. WILL CONTINUE TO MONITOR PATIENT
[2020-08-19 12:00] LABS: BILIRUBIN,URINE NEGATIVE (NEGATIVE); COLOR,URINE YELLOW (YELLOW); LEUKOCYTE ESTERASE ,URINE NEGATIVE (NEGATIVE); NITRITE, URINE NEGATIVE (NEGATIVE); PROTEIN,URINE NEGATIVE (NEGATIVE); UGLUCOSE NEGATIVE (NEGATIVE); UROBILINOGEN,URINE 0.2 EU/dL (0.2)
[2020-08-19 12:04] LABS: CREATININE, URINE 58.5 MG/DL (30.0-125.0); URINE TOTAL PROTEIN 28.5 mg/dL (0-11.9)
--- NOTE | 2020-08-19 13:30 | NUR ---
RN NOTE REMOVED SUAREZ CATHETER. PATIENT TOLERATED PROCEDURE WELL. 500 CC OF URINE WAS ALSO IN TH BAG. WILL MONITOR FOR URINARY RETENTION. Addendum: 08/19/20 at 1354 by RIRI HERNADEZ RN WRONG ENTRY
[2020-08-19 13:51] LABS: EOSINOPHIL,URINE None Seen
--- NOTE | 2020-08-19 14:07 | NUR ---
RN NOTE RECEIVED A CALL FROM MRI. PATIENT IS UNABLE TO HOLD STILL FOR MRI PROCEDURE OF THE LEFT LOWER EXTREMITY AND CURRENT IMAGES WERE UNREADABLE. NOTIFIED MD WHO GAVE NEW ORDER FOR ATIVAN 1MG IV PRIOR TO MRI PROCEDURE TOMORROW. WILL ENDORSE ACCORDINGLY.
--- NOTE | 2020-08-19 14:50 | NUR ---
Equipment Operator/Laborer/Supervisor consult: sales agent business services consult requested for substance use. Patient is 59-year-old, male. Per chart, patient was brought in by ambulance from an urgent care on 08/18/20 for cellulitis and diabetic foot ulcer. SW met with patient at his hospital room in the med-surg unit. Patient was alert and oriented x4. Patient was resting. Patient appeared well-groomed. Patient stated that he is currently living with a friend at [address] [place], [place] [id number]; [phone]. 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 Per patients toxicology report, patient is positive for amphetamine. Patient denies current substance use. Patient stated that he is currently receiving disability income. Patient uses a cane or scooter and reported that he is independent with his ADLs. SW assessed patients access to social support and patient stated he has adequate support from friends and family. SW assessed patients history of mental illness and patient stated that he has no history. Patient denies suicidal or homicidal ideation. Patient stated that he plans to return to his prior living arrangement. SW discussed transportation with the patient and patient stated he will call a rideshare service. PLAN: Patient plans to return to his prior living arrangement. No further SS intervention, however, SW will remain available as needed.
--- NOTE | 2020-08-19 18:26 | NUR ---
MS RN CLOSING NOTE PATIENT IN BED AWAKE, A/O X 4. ABLE TO MAKE NEEDS KNOWN. BREATHING EVEN AND UNLABORED, TOLERATING ROOM AIR. NO SIGNS OF DISTRESS NOTED BLE REDNESS PRESENT, ULCERS PRESENT ON BOTH FEET WELL. IV ACCESS NOTED ON RIGHT HAND # 22 GAUGE, IV PATENT AND INTACT. PATIENT DOES NOT COMPLAIN OF PAIN OR DISCOMFORT AT THIS TIME. ALL MEDICATION WERE GIVEN ORDERED. WOUND TREATMENT WAS PERFORMED. SAFETY MEASURES IN PLACE: BED IN LOCKED AND LOWEST POSITION, SIDE RAILS UP, CALL LIGHT WITHIN REACH.
[2020-08-19 20:00] VITALS: BP 99/66
--- NOTE | 2020-08-19 20:04 | NUR ---
MS/TELE/RN RECEIVED PATIENT SLEEPING, APPEAR COMFORTABLE, NO DISTRESS NOTED, CALL LIGHT IN REACH, WILL MONITOR.
[2020-08-20] MEDS: CEFEPIME 2 GM in IV D5W 100 ML IV SCH ×3 (00:27→23:05)
--- NOTE | 2020-08-20 03:23 | NUR ---
MS/TELE/RN PATIENT IS AWAKE AT THIS TIME, NO C/O PAIN, NO DISTRESS NOTED, WILL CONTINUE TO MONITOR.
[2020-08-20 06:11] LABS: BASOPHILS # (AUTO) 0.1 /CMM (0.0-0.2); EOSINOPHILS % (AUTO) 4.7 % (0.0-6.0); HEMATOCRIT 41 % (39-51); HEMOGLOBIN 13.1 g/dL (13.5-17.5); LYMPHOCYTES # (AUTO) 1.3 /CMM (0.8-4.8); LYMPHOCYTES % (AUTO) 14.3 % (20.0-44.0); MEAN CORPUSCULAR HGB CONC 32 g/dl (31.0-36.0); MEAN CORPUSCULAR VOLUME 89 fL (80-96); MONOCYTES # (AUTO) 0.7 /CMM (0.1-1.30); NEUTROPHILS # (AUTO) 6.7 /CMM (1.8-8.9); PLATELET COUNT (AUTO) 385 /CMM (150-450); RED BLOOD CELL COUNT(AUTO) 4.56 MIL/uL (4.5-6.0); WHITE BLOOD COUNT (AUTO) 9.3 K/uL (4.3-11.0)
[2020-08-20 06:18] LABS: ALBUMIN 2.7 g/dL (3.4-5.0); BILIRUBIN,TOTAL 0.3 mg/dL (0.2-1.0); CALCIUM, SERUM 9.9 mg/dL (8.5-10.1); CREATININE 0.8 mg/dL (0.6-1.3); MAGNESIUM 2.1 mg/dL (1.8-2.4); PHOSPHORUS 2.7 mg/dL (2.5-4.9); POTASSIUM 3.8 mmol/L (3.5-5.1)
--- NOTE | 2020-08-20 07:07 | NUR ---
MS/TELE/RN PATIENT IS AWAKE, COMFORTABLE, NO DISTRESS NOTED, CALL LIGHT IN REACH, ALL NEEDS ATTENDED AT THIS TIME, WILL CONTINUE TO MONITOR.
--- NOTE | 2020-08-20 07:27 | NUR ---
MS RN NOTES RECEIVED IN BED, ASLEEP, NOT IN ANY FORM OF ACUTE DISTRESS NOTED, EASILY AWAKEN BY VERBAL AND TACTILE STIMULI. WITH IV HEPLOCK ON RIGHT HAND G#22, PATENT AND FLUSHES WELL. NOTED BLE REDNESS PRESENT, ULCERS PRESENT ON BOTH FEET, NO COMPLAINTS AND S/SX OF PAIN OR DISCOMFORT AT THIS TIME. SAFETY PRECAUTIONS OBSERVED AND MAINTAINED: BED ON LOWEST LOCKED POSITION, SIDE RAILS UP X 2. KEPT CALL LIGHT WITHIN EASY REACH. WILL CONTINUE TO MONITOR PATIENT'S CURRENT STATUS.
[2020-08-20 08:00] VITALS: BP 107/74
[2020-08-20] MEDS ORDERED: LORAZEPAM INJ 2 MG/ML VIAL IV ONE (08:00)
[2020-08-20] MEDS: PANTOPRAZOLE 40 MG TABLET.DR PO SCH (08:04)
[2020-08-20] MEDS: HEPARIN SODIUM, PORCINE 5000 UNITS/1 ML VIAL SQ SCH ×2 (08:44→21:12)
--- NOTE | 2020-08-20 10:52 | NUR ---
RN NOTES FOLLOWED UP MRI SCHEDULE, SPOKE TO NOMAN, PER NOMAN THEY WILL GIVE US A CALL REAGRDING SCHEDULE ONCE THEY ARE READY.
--- NOTE | 2020-08-20 15:09 | NUR ---
RN NOTES FOLLOWED UP AGAIN MRI SCHEDULE, PER TESTING DIRECTOR JOE THEY WONT BE ABLE TO DO IT TODAY DUE TO TRAILER TRUCK DOOR IS BROKEN.
[2020-08-20 16:00] VITALS: BP 118/71
--- NOTE | 2020-08-20 17:36 | NUR ---
RN NOTES LORAZEPAM 1MG/0.5ML NOT ADMINISTERED TODAY BECAUSE PT'S MRI CANCELLED TODAY AND WILL BE DONE TOMORROW. NEW ORDER OF LORAZEPAM ORDERED FOR TOMORROW. MRI TRAILER DOOR BROKEN TODAY AND BEING FIXED. WILL ENDORSE TO INCOMING SHIFT.
--- NOTE | 2020-08-20 17:48 | NUR ---
MS RN CLOSING NOTES PATIENT IN BED, AWAKE, A AND O X 4, NOT IN ANY FORM OF ACUTE DISTRESS NOTED. WITH IV HEPLOCK ON RIGHT HAND G#22, PATENT AND FLUSHES WELL. BLE REDNESS PRESENT, ULCERS PRESENT ON BOTH GREAT TOES, NO COMPLAINTS AND S/SX OF PAIN OR DISCOMFORT AT THIS TIME. WOUND CARE TREATMENT DONE ORDERED. SAFETY PRECAUTIONS OBSERVED AND MAINTAINED DURING THE SHIFT: BED ON LOWEST LOCKED POSITION, SIDE RAILS UP X 2. KEPT CALL LIGHT WITHIN EASY REACH. ALL DUE MEDS GIVEN ORDERED. ENDORSED TO NIGHT SHIT NURSE FOR CONTINUITY OF CARE.
--- NOTE | 2020-08-20 19:30 | NUR ---
RN OPENING NOTES Patient was seen sleeping in bed. Patient's on room air with no respiratory distress noted. Patient has an IV HL on his right hand. Safety measures in place: Bed locked and bed alarm on, side rails up x3, and call light within easy reach of the patient.
[2020-08-20 20:00] VITALS: BP 82/56
[2020-08-20 20:44] VITALS: BP 115/80
--- NOTE | 2020-08-20 20:44 | NUR ---
RN NOTES Patient's KR=[id number] and HR=91 at 2043.
[2020-08-21 06:00] LABS: BASOPHILS # (AUTO) 0.1 /CMM (0.0-0.2); BASOPHILS % (AUTO) 1.1 % (0.0-2.0); EOSINOPHILS % (AUTO) 3.3 % (0.0-6.0); HEMATOCRIT 43 % (39-51); LYMPHOCYTES # (AUTO) 1.5 /CMM (0.8-4.8); LYMPHOCYTES % (AUTO) 15.6 % (20.0-44.0); MEAN CORPUSCULAR HGB CONC 33 g/dl (31.0-36.0); MEAN CORPUSCULAR VOLUME 88 fL (80-96); MONOCYTES # (AUTO) 0.8 /CMM (0.1-1.30); MONOCYTES % (AUTO) 8.1 % (2.0-12.0); NEUTROPHILS # (AUTO) 6.7 /CMM (1.8-8.9); NEUTROPHILS % (AUTO) 71.9 % (43.0-81.0); PLATELET COUNT (AUTO) 421 /CMM (150-450); RED BLOOD CELL COUNT(AUTO) 4.84 MIL/uL (4.5-6.0); WHITE BLOOD COUNT (AUTO) 9.3 K/uL (4.3-11.0)
[2020-08-21 06:03] LABS: CREATININE 0.8 mg/dL (0.6-1.3); MAGNESIUM 2.1 mg/dL (1.8-2.4); PHOSPHORUS 2.5 mg/dL (2.5-4.9); POTASSIUM 4.1 mmol/L (3.5-5.1)
--- NOTE | 2020-08-21 06:40 | NUR ---
RN CLOSING NOTES Patient was seen awake lying down in bed. Patient's on room air with no respiratory distress noted. Patient has an IV HL on his right hand which is intact and patent. Safety measures in place: Bed locked and bed alarm on, side rails up x2, and call light within easy reach of the patient. Will endorse care to next shift nurse.
[2020-08-21 07:07] LABS: *SPE A/G RATIO 0.8 (0.7-1.7); *SPE ALBUMIN 2.8 g/dL (2.9-4.4); *SPE ALPHA-1-GLOBULIN 0.2 g/dL (0.0-0.4); *SPE BETA GLOBULIN 1.2 g/dL (0.7-1.3); *SPE GLOBULIN, TOTAL 3.3 g/dL (2.2-3.9); *SPE M-SPIKE Not Observed g/dL (Not Observed); PTH, INTACT 22 pg/mL (15-65)
[2020-08-21 07:48] VITALS: BP 142/87
--- NOTE | 2020-08-21 07:52 | NUR ---
MS RN OPENING NOTES RECEIVED PATIENT IN BED, AWAKE, A/O X4. PATIENT ON ROOM AIR; BREATHING IS EVEN AND UNLABORED; NO SOB PRESENT AT THIS TIME. NO COMPLAINS OF PAIN. R HAND IV ACCESS G 3 22 PRESENT AND INTACT; HL. SAFETY PRECAUTIONS IN PLACE; BED IN LOW POSITION AND LOCKED, RAILS UP X2, CALL LIGHT WITHIN REACH. WILL CONTINUE TO MONITOR PATIENT.
[2020-08-21] MEDS: PANTOPRAZOLE 40 MG TABLET.DR PO SCH (08:07)
[2020-08-21] MEDS: HEPARIN SODIUM, PORCINE 5000 UNITS/1 ML VIAL SQ SCH ×2 (08:10→21:22)
[2020-08-21] MEDS ORDERED: LORAZEPAM INJ 2 MG/ML VIAL IV ONE (09:00)
[2020-08-21] MEDS: CEFEPIME 2 GM in IV D5W 100 ML IV SCH ×2 (12:09→23:32)
[2020-08-21 16:42] VITALS: BP 122/78
--- NOTE | 2020-08-21 18:44 | NUR ---
MS RN CLOSING NOTES PATIENT REMAINS IN BED, ASLEEP AT THIS TIME, A/O X4. PATIENT ON ROOM AIR; BREATHING IS EVEN AND UNLABORED; NO SOB PRESENT DURING SHIFT. NO COMPLAINS OF PAIN. R HAND IV ACCESS G # 22 PRESENT AND INTACT; HL. ALL NEEDS ATTENDED DURING THE DAY. SAFETY PRECAUTIONS IN PLACE; BED IN LOW POSITION AND LOCKED, RAILS UP X2, CALL LIGHT WITHIN REACH. WILL ENDORSE TO SORTING COWS WORKER NURSE.
--- NOTE | 2020-08-21 19:30 | NUR ---
MS/RN OPENING NOTES RECEIVED PATIENT SLEEPING IN BED, EASY TO AROUSE. PATIENT IS ALERT AND ORIENTED X 4. PATIENT BREATHING IS EVEN AND UNLABORED, NO SIGNS OF RESPIRATORY DISTRESS NOTED. NO ACUTE DISTRESS NOTED. IV ACCESS INTACT FLUSHING WELL, R HAND 22G. SAFETY MEASURES ARE IN PLACE, BED LOCKED AND PLACED IN LOW POSITION, SIDE RAIL UP X 2, CALL LIGHT WITHIN REACH. WILL CONTINUE WITH PATIENT PLAN OF CARE.
[2020-08-21 20:00] VITALS: BP 119/74
[2020-08-22 06:10] LABS: BASOPHILS # (AUTO) 0.1 /CMM (0.0-0.2); EOSINOPHILS % (AUTO) 3.4 % (0.0-6.0); HEMATOCRIT 41 % (39-51); HEMOGLOBIN 13.4 g/dL (13.5-17.5); LYMPHOCYTES # (AUTO) 1.7 /CMM (0.8-4.8); LYMPHOCYTES % (AUTO) 18.6 % (20.0-44.0); MEAN CORPUSCULAR HGB CONC 33 g/dl (31.0-36.0); MEAN CORPUSCULAR VOLUME 88 fL (80-96); MONOCYTES # (AUTO) 0.9 /CMM (0.1-1.30); MONOCYTES % (AUTO) 9.4 % (2.0-12.0); NEUTROPHILS # (AUTO) 6.2 /CMM (1.8-8.9); NEUTROPHILS % (AUTO) 67.6 % (43.0-81.0); PLATELET COUNT (AUTO) 415 /CMM (150-450); RED BLOOD CELL COUNT(AUTO) 4.66 MIL/uL (4.5-6.0); WHITE BLOOD COUNT (AUTO) 9.1 K/uL (4.3-11.0)
--- NOTE | 2020-08-22 06:49 | NUR ---
MS/RN CLOSING NOTES PATIENT IN BED RESTING, WATCHING TV. PATIENT IS ALERT AND ORIENTED X 4. PATIENT BREATHING IS EVEN AND UNLABORED, NO SIGNS OF RESPIRATORY DISTRESS NOTED. NO ACUTE DISTRESS NOTED. IV ACCESS INTACT FLUSHING WELL, R HAND 22G. ALL NEEDS HAVE BEEN MET. SAFETY MEASURES ARE IN PLACE, BED LOCKED AND PLACED IN LOW POSITION, SIDE RAIL UP X 2, CALL LIGHT WITHIN REACH. WILL ENDORSE CARE TO DAY SHIFT NURSE.
[2020-08-22 07:31] LABS: CALCIUM, SERUM 9.9 mg/dL (8.5-10.1); CREATININE 0.7 mg/dL (0.6-1.3); MAGNESIUM 2.2 mg/dL (1.8-2.4); PHOSPHORUS 2.3 mg/dL (2.5-4.9); POTASSIUM 4.3 mmol/L (3.5-5.1)
--- NOTE | 2020-08-22 07:32 | NUR ---
MS RN OPENING NOTES RECEIVED PATIENT SLEEPING IN BED, EASY TO AROUSE. PATIENT IS ALERT AND ORIENTED X 4. PATIENT BREATHING IS EVEN AND UNLABORED, NO SIGNS OF RESPIRATORY DISTRESS NOTED. IV ACCESS INTACT FLUSHING WELL, R HAND 22G. SAFETY MEASURES ARE IN PLACE, BED LOCKED AND PLACED IN LOW POSITION, SIDE RAILS UP X 2, CALL LIGHT WITHIN REACH. WILL CONTINUE WITH PATIENT PLAN OF CARE.
[2020-08-22] MEDS: PANTOPRAZOLE 40 MG TABLET.DR PO SCH (07:34)
[2020-08-22 08:00] VITALS: BP 122/79
[2020-08-22] MEDS: HEPARIN SODIUM, PORCINE 5000 UNITS/1 ML VIAL SQ SCH ×2 (08:14→21:03)
--- NOTE | 2020-08-22 10:06 | NUR ---
MS RN NOTES PATIENT ALERT AND ORIENTED X4. PER PATIENTS REQUEST, CODE STATUS IS "FULL CODE." INFORMED DR. OSULLIVAN WITH ORDER FOR FULL CODE.
--- NOTE | 2020-08-22 11:00 | NUR ---
MS RN NOTES FOLLOWED UP WITH DR. AGUIRRE REGARDING MEDICATION RECONCILIATION NEEDS TO BE DONE.
[2020-08-22] MEDS: CEFEPIME 2 GM in IV D5W 100 ML IV SCH ×2 (12:17→23:02)
[2020-08-22] MEDS ORDERED: NEUTRA PHOS 1 POWD.PACKET PO ONE (13:00)
--- NOTE | 2020-08-22 13:20 | NUR ---
MS RN NOTES FOLLOWED UP WITH SRAVANTHI REGARDING MRI. PER SRAVANTHI, THEY ARE STILL UNABLE TO DO AT THIS TIME. THEY WILL CALL ONCE WORKING.
--- NOTE | 2020-08-22 14:31 | NUR ---
MS BECKIE OPENING NOTES PATIENT SLEEPING IN BED.ALERT AND ORIENTED X 4. BREATHING IS EVEN AND UNLABORED, NO SIGNS OF RESPIRATORY DISTRESS NOTED. IV ACCESS INTACT FLUSHING WELL, R HAND#22. SAFETY MEASURES ARE IN PLACE, BED LOCKED AND PLACED IN LOW POSITION, SIDE RAILS UP X 2, CALL LIGHT WITHIN REACH. WILL CONTINUE TO MONITOR THROUGHOUT SHIFT. Addendum: 08/22/20 at 1614 by ZHANG NORMAN RN DISREGARD ABOVE NOTE--ERROR
[2020-08-22] MEDS: SPIRONOLACTONE 25 MG TABLET PO SCH (15:50)
[2020-08-22] MEDS: FUROSEMIDE 40 MG TABLET PO SCH (15:51)
[2020-08-22 15:53] VITALS: BP 121/76
--- NOTE | 2020-08-22 16:14 | NUR ---
MS RN NOTES FOLLOWED UP WITH JOE REGARDING MRI, DOOR IS STILL BROKEN AND ANTICIPATES IT WILL BE FIXED ON MONDAY DUE TO HOLIDAY. MADE BOTH DR. AGUIRRE AND PATIENT AWARE.
[2020-08-22] MEDS: DULOXETINE HCL 20 MG CAPSULE.DR PO SCH (16:51)
[2020-08-22] MEDS: ALLOPURINOL 100 MG TABLET PO SCH (16:51)
--- NOTE | 2020-08-22 18:39 | NUR ---
MS RN CLOSING NOTES PATIENT SLEEPING IN BED, EASY TO AROUS .ALERT AND ORIENTED X 4. BREATHING IS EVEN AND UNLABORED, NO SIGNS OF RESPIRATORY DISTRESS NOTED. IV ACCESS R HAND#22, INTACT AND FLUSHING WELL. ALL MEDICATIONS GIVEN ORDERED. SAFETY MEASURES IN PLACE, BED LOCKED AND PLACED IN LOW POSITION, SIDE RAILS UP X 2, CALL LIGHT WITHIN REACH. WILL ENDORSE CONTINUITY OF CARE TO ONCOMING NURSE.
--- NOTE | 2020-08-22 19:30 | NUR ---
MS RN NOTES Patient is asleep but easily roused. Alert and oriented x4. No signs of distress noted. Will continue to monitor.
[2020-08-22 20:00] VITALS: BP 107/87
[2020-08-22] MEDS: METOPROLOL TARTRATE 25 MG TABLET PO SCH ×2 (20:59→21:16)
[2020-08-22 21:16] VITALS: BP 115/80
[2020-08-22] MEDS ORDERED: ATORVASTATIN 40 MG TABLET PO SCH (22:00)
--- NOTE | 2020-08-23 06:03 | NUR ---
MS RN CLOSING NOTES Patient is A&Ox4. VSS. Afebrile. Slept well throughout the night but easy to rouse. Tolerated midnight IV ABX well, no adverse side effects. Patient pleasant and cooperative. Denies pain to toes or feet. Able to make needs known. All needs met by staff.
[2020-08-23 06:14] LABS: BASOPHILS # (AUTO) 0.1 /CMM (0.0-0.2); BASOPHILS % (AUTO) 0.7 % (0.0-2.0); EOSINOPHILS % (AUTO) 3.6 % (0.0-6.0); HEMATOCRIT 43 % (39-51); HEMOGLOBIN 13.9 g/dL (13.5-17.5); LYMPHOCYTES # (AUTO) 1.6 /CMM (0.8-4.8); LYMPHOCYTES % (AUTO) 16.6 % (20.0-44.0); MEAN CORPUSCULAR HGB CONC 33 g/dl (31.0-36.0); MEAN CORPUSCULAR VOLUME 88 fL (80-96); MONOCYTES # (AUTO) 0.8 /CMM (0.1-1.30); MONOCYTES % (AUTO) 8.4 % (2.0-12.0); NEUTROPHILS # (AUTO) 6.9 /CMM (1.8-8.9); NEUTROPHILS % (AUTO) 70.7 % (43.0-81.0); PLATELET COUNT (AUTO) 382 /CMM (150-450); RED BLOOD CELL COUNT(AUTO) 4.85 MIL/uL (4.5-6.0); WHITE BLOOD COUNT (AUTO) 9.7 K/uL (4.3-11.0)
[2020-08-23 06:21] LABS: CALCIUM, SERUM 9.7 mg/dL (8.5-10.1); CREATININE 0.9 mg/dL (0.6-1.3); MAGNESIUM 2.1 mg/dL (1.8-2.4); PHOSPHORUS 2.8 mg/dL (2.5-4.9); POTASSIUM 4.5 mmol/L (3.5-5.1)
--- NOTE | 2020-08-23 07:25 | NUR ---
MS RN OPENING NOTES RECEIVED PATIENT AWAKE IN BED, WATCHING TV. A/O X4. ON ROOM AIR - TOLERATING WELL. NO SOB NOTED, NO RESPIRATORY DISTRESS NOTED. PATIENT IS AMBULATORY. IV ACCESS TO RIGHT HAND #22 - INTACT AND PATENT, NO FLUIDS RUNNING. SAFETY MEASURES IN PLACE. CALL LIGHT WITHIN REACH. WILL CONTINUE TO MONITOR.
[2020-08-23] MEDS: PANTOPRAZOLE 40 MG TABLET.DR PO SCH ×2 (07:30→08:00)
[2020-08-23] MEDS: METOPROLOL TARTRATE 25 MG TABLET PO SCH (09:00)
[2020-08-23] MEDS: ALLOPURINOL 100 MG TABLET PO SCH (09:00)
[2020-08-23] MEDS: SPIRONOLACTONE 25 MG TABLET PO SCH (09:00)
[2020-08-23] MEDS: HEPARIN SODIUM, PORCINE 5000 UNITS/1 ML VIAL SQ SCH (09:00)
[2020-08-23] MEDS: FUROSEMIDE 40 MG TABLET PO SCH (09:00)
[2020-08-23] MEDS: DULOXETINE HCL 20 MG CAPSULE.DR PO SCH (09:00)
--- NOTE | 2020-08-23 09:03 | NUR ---
MS RN NOTE PATIENT REFUSED ALL MEDS. WANTS TO AMA.
--- NOTE | 2020-08-23 10:18 | NUR ---
MS RN AMA DISCHARGE NOTE PATIENT AMA @ 1015. STATED HE NEEDED MORE TREATMENT THAN HE WAS RECEIVING AND WILL COME BACK ANOTHER TIME. REFUSED DC WOUND PHOTOS. ADVISED PATIENT TO KEEP THE WOUND CLEAN, DRY, AND DRESSED. IV REMOVED, WRISTBAND REMOVED. AMA FORM SIGNED. EXITCARE GIVEN TO PATIENT. PATIENT ACCOMPANIED TO LOBBY BY JACEK MCALLISTER. MD AGUIRRE AWARE. CHARGE NURSE AWARE.
--- NOTE | 2020-08-23 11:43 | NUR ---
[facility] INCIDENT REPORT DONE EVENT ID: [id number]
== END 2020-08-23 10:15 | disposition left against medical advice (07) | DRG 344 ==
LOC: ER 11:26 → MED 15:18
PROVIDERS: ADMIT Student in an Organized Health Care Education/Training Program; ATTEND Student in an Organized Health Care Education/Training Program
DX: E11.69 Type 2 diabetes mellitus with other specified complication (principal); M86.172 Other acute osteomyelitis, left ankle and foot; N17.0 Acute kidney failure with tubular necrosis; E43 Unspecified severe protein-calorie malnutrition; I96 Gangrene, not elsewhere classified; D68.59 Other primary thrombophilia; E11.22 Type 2 diabetes mellitus with diabetic chronic kidney disease; E11.621 Type 2 diabetes mellitus with foot ulcer; E11.40 Type 2 diabetes mellitus with diabetic neuropathy, unspecified; E11.52 Type 2 diabetes mellitus with diabetic peripheral angiopathy with gangrene; E66.01 Morbid (severe) obesity due to excess calories; L03.116 Cellulitis of left lower limb; I25.10 Atherosclerotic heart disease of native coronary artery without angina pectoris; I48.91 Unspecified atrial fibrillation; I50.9 Heart failure, unspecified; N18.9 Chronic kidney disease, unspecified; Z89.421 Acquired absence of other right toe(s); E88.09 Other disorders of plasma-protein metabolism, not elsewhere classified; I13.0 Hypertensive heart and chronic kidney disease with heart failure and stage 1 through stage 4 chronic kidney disease, or unspecified chronic kidney disease; E78.5 Hyperlipidemia, unspecified; L97.519 Non-pressure chronic ulcer of other part of right foot with unspecified severity; L97.529 Non-pressure chronic ulcer of other part of left foot with unspecified severity; L03.115 Cellulitis of right lower limb; Z79.84 Long term (current) use of oral hypoglycemic drugs; Z20.822 Contact with and (suspected) exposure to COVID-19; Z68.35 Body mass index [BMI] 35.0-35.9, adult
CPT/HCPCS: 36415; 71045-TC; 73630-TC; 80048-TC; 80053-TC; 80061-TC; 80076-TC; 82550-TC; 82570-TC; 83605-TC; 83735-TC; 83970; 84100-TC; 84155; 84155-TC; 84165; 84300-TC; 84484-TC; 85025-TC; 85730-TC; 87040-TC; 87081-TC; C9803; G0378; J0692; J1644; J3490; J7050; J7060

== ENCOUNTER 2020-10-03 12:59 | Inpatient (IN) | payer OTHER ==
[~2020-10-03] VITALS: Ht 182.9 cm; Wt 111.6 kg
[~2020-10-03 12:59] MED LIST changes: +ALLO300T2 PO; -BISA10SU8 RC; -CARV3.122 PO; -DOCU-141 PO; +DULO20CA PO; +GLIM1TAB18 PO; -LISI-768 PO; -MAGN400O6 PO; +METF-440 PO; +METO25TA20 PO; -NA P133E RC; -PIPE3.376 IV; -SENN-261 PO; -SIME80TA15 PO
[2020-10-03 13:44] LABS: BASOPHILS # (AUTO) 0.1 K/uL (0.0-0.2); EOSINOPHILS % (AUTO) 3.5 % (0.0-6.0); HEMATOCRIT 41 % (39-51); HEMOGLOBIN 13.1 g/dL (13.5-17.5); LYMPHOCYTES # (AUTO) 2.2 K/uL (0.8-4.8); LYMPHOCYTES % (AUTO) 18.7 % (20.0-44.0); MEAN CORPUSCULAR HGB CONC 32 g/dl (31.0-36.0); MEAN CORPUSCULAR VOLUME 87 fL (80-96); MONOCYTES # (AUTO) 1.1 K/uL (0.1-1.30); NEUTROPHILS % (AUTO) 67.8 % (43.0-81.0); PLATELET COUNT (AUTO) 419 K/uL (150-450); RED BLOOD CELL COUNT(AUTO) 4.72 MIL/uL (4.5-6.0); WHITE BLOOD COUNT (AUTO) 11.9 K/uL (4.3-11.0)
--- NOTE | 2020-10-03 13:44 | NUR ---
bibs to er bed 12. aaox4. not in resp distress. ambulatory. came in for right great toe pain, redness and sweeling x 2.5months. pt also noted with an overgrown toe nail on r foot. was at the bedside for eval. orders received, noted and carried out. iv line on l forearm 18g, blood drawn and given to phleb.
[2020-10-03 13:59] LABS: CALCIUM, SERUM 8.8 mg/dL (8.5-10.1); CARBON DIOXIDE 29 mmol/L (21-32); CHLORIDE 103 mmol/L (98-107); CREATININE 1.1 mg/dL (0.6-1.3); GLUCOSE 64 mg/dL (74-106); POTASSIUM 3.9 mmol/L (3.5-5.1); SODIUM SERUM 139 mmol/L (136-145); UREA NITROGEN, BLOOD 18 mg/dL (7-18)
[2020-10-03 14:13] LABS: ALANINE AMINOTRANSFERASE 23 U/L (12-78); ALKALINE PHOSPHATASE 162 U/L (46-116); ASPARTATE AMINOTRANSFERASE 15 U/L (15-37); BILIRUBIN,DIRECT 0.1 mg/dL (0.0-0.2); BILIRUBIN,TOTAL 0.5 mg/dL (0.2-1.0); TOTAL PROTEIN, SERUM 6.9 g/dL (6.4-8.2)
[2020-10-03] MEDS ORDERED: METO-357 PO (14:28)
[2020-10-03] MEDS ORDERED: DULO60CA64 PO (14:28)
[2020-10-03] MEDS ORDERED: EZET10TA32 PO (14:28)
[2020-10-03] MEDS ORDERED: PIPERACILLIN /TAZOBACTAM 3.375 G VIAL IV ONE (14:30)
[2020-10-03] MEDS ORDERED: PIPERACILLIN /TAZOBACTAM 3.375 G in IV D5W 50 ML IV ONE (14:30)
--- NOTE | 2020-10-03 15:14 | NUR ---
RECEIVED CALL FROM LEPIDOPTERIST ROSIE, CLINICALS PROVIDED AND VERBAL AUTH GIVEN.
--- NOTE | 2020-10-03 15:46 | NUR ---
PT NOTED WITH BP OF 93/57 MD MADE AWARE. ORDER RECEIVED TO GIVE NS 1L BOLUS X 1. NOTED AND CARRIED OUT
[2020-10-03] MEDS ORDERED: IV NS 0.9% 500 ML BAG IV ONE (16:00)
[2020-10-03] MEDS ORDERED: MAGNESIUM HYDROXIDE 30 ML UDC PO PRN (16:30)
[2020-10-03] MEDS ORDERED: DEXTROSE 50%-WATER 50 ML DISP.SYRIN IV PRN (16:30)
[2020-10-03] MEDS ORDERED: ACETAMINOPHEN 325 MG TABLET PO PRN (16:30)
[2020-10-03] MEDS ORDERED: HYDROCODONE/APAP 5/325MG TABLET PO PRN (16:30)
[2020-10-03] MEDS ORDERED: ZOLPIDEM TARTRATE 5 MG TABLET PO PRN (16:30)
[2020-10-03] MEDS ORDERED: Z GUARD REMEDY 2 OZ OINT TP PRN (16:30)
[2020-10-03] MEDS ORDERED: MAG HYDROX/AL HYDROX/SIMETH 30 ML UDC PO PRN (16:30)
[2020-10-03] MEDS ORDERED: ONDANSETRON HCL/PF 4 MG/2 ML VIAL IVP PRN (16:30)
--- NOTE | 2020-10-03 16:35 | NUR ---
GUSTAVO RANDOLPH NP AT BEDSIDE
--- NOTE | 2020-10-03 17:59 | NUR ---
BED 110
--- NOTE | 2020-10-03 18:01 | NUR ---
CALLED TO REPORT, PER AMELIA, CHARGE NURSE REPORT WILL BE TAKEN AT 1830. WILL CALL BACK AGAIN
[2020-10-03] MEDS: BLOOD SUGAR DIAGNOSTIC 1 EACH STRIP IN SCH ×2 (18:32→21:25)
--- NOTE | 2020-10-03 18:32 | NUR ---
REPROT GIVEN TO BECKIE OLIVEIRA FOR THIERRY
--- NOTE | 2020-10-03 18:37 | NUR ---
received report from monique,patient eating dinner and glucose in er 64.vss.
--- NOTE | 2020-10-03 18:49 | NUR ---
PT TRANSPORTED TO UNIT ON [facility] WITH EMT AT BEDSIDE. PT IS IN STABLE CONDITION.
--- NOTE | 2020-10-03 18:50 | NUR ---
received pt. from er via stretcher awake alert,check blood sugar 2x 40's,pt. deneid any symptoms,OJ GIVEN AND DINNER SERVED.call light at reach.report given to ilene cancino for continuty of care.
--- NOTE | 2020-10-03 18:54 | NUR ---
panchito nps made aware blood sugar low ,no new orders.
[2020-10-03 18:56] VITALS: BP 109/56
[2020-10-03] MEDS ORDERED: FLUCONAZOLE (100 MG) 100 MG TABLET PO SCH (19:00)
[2020-10-03] MEDS: METFORMIN 500 MG TABLET PO SCH (19:01)
--- NOTE | 2020-10-03 19:02 | NUR ---
MED NOTE: METFORMIN HELD LOW BLOOD SUGAR. WILL CONTINUE TO MONITOR
[2020-10-03 20:07] VITALS: BP 100/64
[2020-10-03] MEDS: CLINDAMYCIN 600 MG in IV D5W 50 ML IV SCH (20:16)
[2020-10-03] MEDS: ALLOPURINOL 100 MG TABLET PO SCH (20:17)
[2020-10-03] MEDS: ENOXAPARIN SODIUM 40 MG/0.4 ML DISP.SYRIN SQ SCH (20:17)
[2020-10-03] MEDS: ATORVASTATIN 40 MG TABLET PO SCH (21:26)
[2020-10-04] MEDS: CLINDAMYCIN 600 MG in IV D5W 50 ML IV SCH ×3 (04:09→23:08)
[2020-10-04 06:29] LABS: BASOPHILS # (AUTO) 0.1 K/uL (0.0-0.2); EOSINOPHILS % (AUTO) 5.8 % (0.0-6.0); HEMATOCRIT 39 % (39-51); HEMOGLOBIN 12.8 g/dL (13.5-17.5); LYMPHOCYTES % (AUTO) 22.1 % (20.0-44.0); MEAN CORPUSCULAR HGB CONC 33 g/dl (31.0-36.0); MEAN CORPUSCULAR VOLUME 87 fL (80-96); MONOCYTES # (AUTO) 0.9 K/uL (0.1-1.30); MONOCYTES % (AUTO) 10.2 % (2.0-12.0); NEUTROPHILS # (AUTO) 5.5 K/uL (1.8-8.9); NEUTROPHILS % (AUTO) 60.9 % (43.0-81.0); PLATELET COUNT (AUTO) 327 K/uL (150-450); RED BLOOD CELL COUNT(AUTO) 4.45 MIL/uL (4.5-6.0); WHITE BLOOD COUNT (AUTO) 9.1 K/uL (4.3-11.0)
[2020-10-04 06:43] LABS: CALCIUM, SERUM 8.4 mg/dL (8.5-10.1); MAGNESIUM 1.6 mg/dL (1.8-2.4); PHOSPHORUS 3.8 mg/dL (2.5-4.9); POTASSIUM 3.7 mmol/L (3.5-5.1)
[2020-10-04 06:50] LABS: THYROID STIMULATING HORMONE 0.66 uIU/mL (0.358-3.74)
--- NOTE | 2020-10-04 06:59 | NUR ---
MS-1/STATUE MAKER PT POC BLOOD GLUCOSE 51 PT GIVEN 8oz ORANGE JUICE AND GIVEN HIS BREAKFAST TRAY. NO S/S OF HYPOGLYCEMIA AT THIS TIME. WILL ENDORSE TO AM SHIFT TO RECHECK BLOOD GLUCOSE SOON BREAKFAST IS COMPLETE.
[2020-10-04] MEDS: BLOOD SUGAR DIAGNOSTIC 1 EACH STRIP IN SCH ×4 (07:30→21:00)
[2020-10-04 08:00] VITALS: BP 94/57
--- NOTE | 2020-10-04 08:11 | NUR ---
INITIAL NOTES RECEIVED PT ASLEEP IN BED WITH NO SIGNS OF ANY DISTRESS. EASILY AROUSABLE; DENIES PAIN AT THIUS TIME. IV ACCESS IN PLACE. SAFETY ENSURED, CALL LIGHT WITHIN REACH, .WILL CONTINUE TO MONITOR
[2020-10-04] MEDS: METFORMIN 500 MG TABLET PO SCH ×2 (09:04→16:47)
[2020-10-04] MEDS: FUROSEMIDE 40 MG TABLET PO SCH (09:05)
[2020-10-04] MEDS: DULOXETINE HCL 30 MG CAPSULE.DR PO SCH (09:05)
[2020-10-04] MEDS: SPIRONOLACTONE 25 MG TABLET PO SCH (09:05)
[2020-10-04] MEDS: EZETIMIBE 10 MG TABLET PO SCH (09:05)
[2020-10-04] MEDS: METOPROLOL SUCCINATE 50 MG TAB.SR.24H PO SCH (09:06)
[2020-10-04] MEDS: ALLOPURINOL 100 MG TABLET PO SCH ×2 (09:06→16:48)
[2020-10-04] MEDS: ASPIRIN EC 81 MG TABLET.DR PO SCH (09:07)
[2020-10-04] MEDS ORDERED: FLUCONAZOLE (100 MG) 100 MG TABLET PO ONE (10:00)
[2020-10-04] MEDS: Magnesium 1GM/D5W 100ML PREMIX 100 ML IV SCH ×2 (10:22→11:26)
[2020-10-04 16:00] VITALS: BP 113/53
--- NOTE | 2020-10-04 17:56 | NUR ---
rn closing notes pt resting; slept intermittently. no c/o pain made. independent with bed mobility. all meds given . will continue on atb, awaiting for wound consult. all needs met
--- NOTE | 2020-10-04 19:25 | NUR ---
rn notes endorsed for continuity of care in stable condition
[2020-10-04 20:00] VITALS: BP 96/70
[2020-10-04] MEDS: ATORVASTATIN 40 MG TABLET PO SCH (23:08)
[2020-10-04] MEDS: ENOXAPARIN SODIUM 40 MG/0.4 ML DISP.SYRIN SQ SCH (23:17)
--- NOTE | 2020-10-05 02:16 | NUR ---
picture taken of RT. BIG TOE. PATIENT STILL COVID PENDING PATIENT VOIDING A LOT 1650 BY NOON NO BOWEL MOVEMENT YET. BLOOD SUGAR 2200 105 NO INSULIN GIVEN. PATIENT HAS 18 GA IN LT. WRIST. NS INFUSING AT KVO.
[2020-10-05 04:00] VITALS: BP 95/53
[2020-10-05] MEDS: CLINDAMYCIN 600 MG in IV D5W 50 ML IV SCH ×3 (05:37→21:03)
[2020-10-05 06:25] LABS: BASOPHILS # (AUTO) 0.1 K/uL (0.0-0.2); BASOPHILS % (AUTO) 0.9 % (0.0-2.0); EOSINOPHILS % (AUTO) 5.8 % (0.0-6.0); HEMATOCRIT 40 % (39-51); HEMOGLOBIN 13.2 g/dL (13.5-17.5); LYMPHOCYTES # (AUTO) 1.7 K/uL (0.8-4.8); LYMPHOCYTES % (AUTO) 18.4 % (20.0-44.0); MEAN CORPUSCULAR HGB CONC 33 g/dl (31.0-36.0); MEAN CORPUSCULAR VOLUME 87 fL (80-96); MONOCYTES # (AUTO) 0.7 K/uL (0.1-1.30); MONOCYTES % (AUTO) 7.3 % (2.0-12.0); NEUTROPHILS # (AUTO) 6.1 K/uL (1.8-8.9); NEUTROPHILS % (AUTO) 67.6 % (43.0-81.0); PLATELET COUNT (AUTO) 313 K/uL (150-450); RED BLOOD CELL COUNT(AUTO) 4.55 MIL/uL (4.5-6.0); WHITE BLOOD COUNT (AUTO) 9.1 K/uL (4.3-11.0)
[2020-10-05 07:10] LABS: CALCIUM, SERUM 8.8 mg/dL (8.5-10.1); CREATININE 0.9 mg/dL (0.6-1.3); POTASSIUM 4.1 mmol/L (3.5-5.1)
--- NOTE | 2020-10-05 07:45 | NUR ---
MS RN OPENING NOTE PATIENT IS IN BED RESTING. PATIENT IS IN NO ACUTE DISTRESS. PATIENT IS ON ROOM AIR SATURATING WELL. . SAFETY PRECAUTIONS ARE ON, BED IS LOCKED IN THE LOWEST POSITION WITH SIDE RAILS UP. CALL LIGHT WITHIN REACH, CONTINUE TO MONITOR CLOSELY.
[2020-10-05] MEDS: BLOOD SUGAR DIAGNOSTIC 1 EACH STRIP IN SCH ×4 (07:59→21:20)
--- NOTE | 2020-10-05 09:41 | NUR ---
WOUND CARE CONSULT: PT PRESENTS WITH DEFORMITY AND DRY BROWN DISCOLORATION TO RT GREAT TOE, PRESENT ON ADMISSION. DR DUMONT NOTIFIED OF DPM CONSULT REQUEST. IN AGREEMENT WITH PLAN OF CARE.
[2020-10-05] MEDS: EZETIMIBE 10 MG TABLET PO SCH (10:20)
[2020-10-05] MEDS: SPIRONOLACTONE 25 MG TABLET PO SCH (10:20)
[2020-10-05] MEDS: DULOXETINE HCL 30 MG CAPSULE.DR PO SCH (10:20)
[2020-10-05] MEDS: FUROSEMIDE 40 MG TABLET PO SCH (10:21)
[2020-10-05] MEDS: METOPROLOL SUCCINATE 50 MG TAB.SR.24H PO SCH (10:21)
[2020-10-05] MEDS: METFORMIN 500 MG TABLET PO SCH ×2 (10:21→17:41)
[2020-10-05] MEDS: ASPIRIN EC 81 MG TABLET.DR PO SCH (10:23)
[2020-10-05] MEDS: ALLOPURINOL 100 MG TABLET PO SCH ×2 (10:23→17:41)
[2020-10-05 12:00] VITALS: BP 100/59
--- NOTE | 2020-10-05 15:17 | NUR ---
Hopper Feeder note: SS consult request received for homelessness. SS will follow up at a later time.
[2020-10-05] MEDS: ENOXAPARIN SODIUM 40 MG/0.4 ML DISP.SYRIN SQ SCH (18:41)
--- NOTE | 2020-10-05 18:53 | NUR ---
MS RN CLOSING NOTE PATIENT IS IN BED RESTING. PATIENT IS IN NO ACUTE DISTRESS. PATIENT IS ON ROOM AIR SATURATING WELL. SAFETY PRECAUTIONS ARE ON, BED IS LOCKED IN THE LOWEST POSITION WITH SIDE RAILS UP. CALL LIGHT WITHIN REACH, ENDORSE PATIENT TO REEL SYSTEM OPERATOR NURSE FOR THIERRY.
--- NOTE | 2020-10-05 19:30 | NUR ---
RN NOTE RECEIVED PT ALERT AND ORIENTED X 4. NO S/SX OF DISTRESS, PT DENIES ANY SOB OR PAIN. IV ON LEFT WRIST PATENT AND INTACT, FLUSHES WELL. PT AMBULATES TO RESTROOM, STABLE. ALL SAFETY MEASURES IN PLACE PER PROTOCOL. CALL LIGHT WITHIN REACH, BED LOCKED IN LOWEST POSITION. SIDE RAILS UP X 2.
[2020-10-05 20:00] VITALS: BP 105/65
[2020-10-05] MEDS: ATORVASTATIN 40 MG TABLET PO SCH (21:05)
[2020-10-06 04:00] VITALS: BP 115/71
[2020-10-06] MEDS: CLINDAMYCIN 600 MG in IV D5W 50 ML IV SCH ×3 (04:04→20:12)
--- NOTE | 2020-10-06 07:00 | NUR ---
RN CLOSING NOTES PT ABLE TO MAKE NEEDS KNOWN. NO SIGNIFICANT CHANGE NOTED. PT DENIES ANY PAIN. WOUND DRESSING CHANGED ON RIGHT TOE. TOLERATED. REMAIN AFEBRILE. ALL DUE MEDS WERE GIVEN ORDERED. WILL ENDORSE TO NEXT SHIFT NURSE FOR THIERRY.
--- NOTE | 2020-10-06 07:30 | NUR ---
RN OPENING NOTES Patient is alert and oriented. Breathing even and unlabored. No c/o pain or discomfort. Fall precautions observed. Call light with in reach.
[2020-10-06] MEDS: INSULIN REGULAR, HUMAN 100 UNIT/ML 3 ML VIAL SQ PRN ×4 (07:44→23:15)
[2020-10-06] MEDS: BLOOD SUGAR DIAGNOSTIC 1 EACH STRIP IN SCH ×4 (07:44→23:14)
[2020-10-06 08:00] VITALS: BP 98/59
[2020-10-06] MEDS: ASPIRIN EC 81 MG TABLET.DR PO SCH (08:11)
[2020-10-06] MEDS: METFORMIN 500 MG TABLET PO SCH ×2 (08:11→18:04)
[2020-10-06] MEDS: ALLOPURINOL 100 MG TABLET PO SCH ×2 (08:11→18:03)
[2020-10-06] MEDS: FUROSEMIDE 40 MG TABLET PO SCH (08:12)
[2020-10-06] MEDS: SPIRONOLACTONE 25 MG TABLET PO SCH (08:12)
[2020-10-06] MEDS: METOPROLOL SUCCINATE 50 MG TAB.SR.24H PO SCH (08:12)
[2020-10-06] MEDS: EZETIMIBE 10 MG TABLET PO SCH (08:12)
[2020-10-06] MEDS: DULOXETINE HCL 30 MG CAPSULE.DR PO SCH (08:12)
[2020-10-06] MEDS ORDERED: GADOTERATE MEGLUMINE 10 MMOL/20 ML VIAL IV ONE (15:50)
[2020-10-06 16:00] VITALS: BP 104/64
[2020-10-06] MEDS: ENOXAPARIN SODIUM 40 MG/0.4 ML DISP.SYRIN SQ SCH (19:02)
--- NOTE | 2020-10-06 19:16 | NUR ---
RN CLOSING NOTES Patient is alert and oriented. Breathing even and unlabored. No c/o pain or discomfort. Fall precautions observed. Midline to left upper arm noted, patent and flushed well. Endorsed to next shift . Call light with in reach.
--- NOTE | 2020-10-06 19:46 | NUR ---
RN NOTE PATIENT ALERT AND ORIENTED X 4. ON ROOM AIR, NO SIGNS OF DISTRESS. DENIES ANY PAIN AT THIS TIME. IV ON LEFT UPPER ARM MIDLINE PATENT AND INTACT, FLUSHES WELL. PT AMBULATES TO RESTROOM, STABLE. ALL SAFETY MEASURES IN PLACE. CALL LIGHT WITHIN REACH, BED LOCKED IN LOWEST POSITION. SIDE RAILS UP X 2. ALL NEEDS ANTICIPATED.
[2020-10-06 20:00] VITALS: BP 111/63
[2020-10-06] MEDS: ATORVASTATIN 40 MG TABLET PO SCH (23:13)
[2020-10-07 04:00] VITALS: BP 118/73
[2020-10-07] MEDS: CLINDAMYCIN 600 MG in IV D5W 50 ML IV SCH ×3 (04:16→20:18)
--- NOTE | 2020-10-07 06:55 | NUR ---
RN NOTE PATIENT ALERT AND ORIENTED X 4. ON ROOM AIR, NO SIGNS OF DISTRESS. IV ON LEFT UPPER ARM MIDLINE PATENT AND INTACT, FLUSHES WELL. ALL DUE MEDS GIVEN ORDERED. ALL NEEDS ATTENDED PROMPTLY. CALL LIGHT WITHIN REACH, BED LOCKED IN LOWEST POSITION. SIDE RAILS UP X 2. WILL ENDORSE TO AM SHIFT.
--- NOTE | 2020-10-07 07:30 | NUR ---
RN OPENING NOTES Patient is alert and oriented. Breathing even and unlabored. No c/o pain or discomfort. Fall precautions observed. Call light with in reach.
[2020-10-07 08:00] VITALS: BP 115/72
[2020-10-07] MEDS: BLOOD SUGAR DIAGNOSTIC 1 EACH STRIP IN SCH ×4 (08:16→21:11)
[2020-10-07] MEDS: DULOXETINE HCL 30 MG CAPSULE.DR PO SCH (08:21)
[2020-10-07] MEDS: FUROSEMIDE 40 MG TABLET PO SCH (08:21)
[2020-10-07] MEDS: SPIRONOLACTONE 25 MG TABLET PO SCH (08:21)
[2020-10-07] MEDS: METFORMIN 500 MG TABLET PO SCH ×2 (08:21→17:30)
[2020-10-07] MEDS: ASPIRIN EC 81 MG TABLET.DR PO SCH (08:21)
[2020-10-07] MEDS: EZETIMIBE 10 MG TABLET PO SCH (08:21)
[2020-10-07] MEDS: ALLOPURINOL 100 MG TABLET PO SCH ×2 (08:22→17:29)
[2020-10-07] MEDS: METOPROLOL SUCCINATE 50 MG TAB.SR.24H PO SCH (08:22)
[2020-10-07] MEDS: INSULIN REGULAR, HUMAN 100 UNIT/ML 3 ML VIAL SQ PRN ×3 (12:15→21:14)
--- NOTE | 2020-10-07 15:55 | NUR ---
[facility] consult: director of tax services consult requested for homelessness. Patient is a 59-year-old, male. SW met with patient at his bedside in the med-surg unit. Patient was calm and resting. Patient was alert and oriented x4. Per chart, patient was brought in by self on 10/07/20 with complaints of foot pain. Patient stated that he is currently homeless and has been homeless for the last week. Patient stated that he has been living in a motel. Patient stated that he is receiving support from [facility] to locate housing. Patient stated that his current income source is [employer]. SW asked the patient if he has access to social support and patient stated that he has no social support at this time. SW asked the patient if he has a history of substance use and patient stated that he has no recent substance use but used methamphetamine "a few months ago." SW assessed patient's history of mental illness and patient denied history. Patient denied suicidal or homicidal ideation. SW offered the patient homeless resources. Patient accepted the resources and thanked SW. Patient signed the homeless waiver and SW filed the waiver in the patient's chart. SW discussed discharge plans with the patient and patient stated that he will discharge to the street and will either stay with a friend or at a motel. Patient reported that he has a car. PLAN: Patient plans to discharge to the street at the time of discharge. No further SS intervention at this time, however, SW will remain available as needed. RESOURCES: Year-round shelters: [facility] [place] [address] [place] [address] ; [facility] [place] [address] [place] [address]; [facility] [id number] [facility] [address] S[place] 4 | [facility] Provider: [facility] Address: [address], [address] # of Beds: 48 Population Served: [facility] Provider: [facility] Address: [address] [facility], [address] # of Beds: 73 Population Served: [facility] 6 | [facility] Provider: [facility] Address: [address] [facility], [address] # of Beds: 63 Population Served: [facility] 3 | [facility] Provider: [facility] [place] Address: [address] [facility], [address] # of Beds: 75 Population Served: [facility] [place] 8 | [facility] Provider: [facility] [place] Address: [address] [facility], [address] # of Beds: 80 Population Served: [facility] [place] 1 | [facility] Provider: [facility] [place] Address: [address] [place] [address], [address] # of Beds: 85 Population Served: [facility] [place] 2 | [facility] Provider: [facility] Address: Confidential (please call for location) # of Beds: 52 Population Served: [facility] 4 | [facility] Provider: [facility] Address: [address] [place] [address], [address] # of Beds: 49 Population Served: [facility] Provider: [facility] Address: [address] [place] [address], [address] # of Beds: 27 Population Served: [facility]: [facility] [facility]: [address] [facility] ; [place] [facility] [address] [facility] ; [facility] [address] [facility] . Food Resources: [place] [facility] at [facility]- [address] [facility]; Meet Each Need with [employer] ([facility]) [address] [facility]; [facility] [address] [facility]; [facility] [address] [facility] [place]. Mental Health resources provided: [facility] [address] , [place] [address] ; [facility] [address] [facility] [address], [place] [address] ; [facility] [address] [place] [address] ; [facility] [place] [address] Healthcare Clinics: [facility] [address] [facility], [address] [place]. [place] ; [facility] [address] [facility] [address] [place] [address]; [facility] [address] [facility] [place] [address] [phone]
[2020-10-07 16:00] VITALS: BP 103/61
[2020-10-07] MEDS: ENOXAPARIN SODIUM 40 MG/0.4 ML DISP.SYRIN SQ SCH (19:14)
--- NOTE | 2020-10-07 19:29 | NUR ---
RN CLOSING NOTES Patient is alert and oriented. Breathing even and unlabored. No c/o pain or discomfort. Fall precautions observed. Midline to left upper arm noted, patent and flushed well. Endorsed to next shift . Received call from Dr Lupe mcdaniel to have patient NPO on for Amputation of partial right great. Consents obtained and in chart. Call light with in reach.
--- NOTE | 2020-10-07 19:30 | NUR ---
RN NOTE RECEIVED PATIENT IN BED. A/OX4. TOLERATING ROOM AIR. RESPIRATIONS ARE EVEN AND UNLABORED. NO S/S SOB NOTED. NO C/O PAIN AT THIS TIME. IN NO APPARENT DISTRESS. IV ACCESS IN TAMMY MIDLINE PATENT AND SALINE LOCKED. BED IS LOW AND LOCKED, HOB ELEVATED IN SEMI FOWLERS, SIDE RAILS UP X2, CALL LIGHT WITHIN REACH. WILL CONTINUE TO MONITOR THROUGHOUT SHIFT.
[2020-10-07 20:00] VITALS: BP 96/63
[2020-10-07] MEDS: ATORVASTATIN 40 MG TABLET PO SCH (21:07)
[2020-10-08] MEDS: CLINDAMYCIN 600 MG in IV D5W 50 ML IV SCH ×3 (03:58→20:39)
[2020-10-08 04:00] VITALS: BP 109/57
--- NOTE | 2020-10-08 06:58 | NUR ---
RN NOTE PATIENT RESTING IN BED. A/OX4. REMAINS TOLERATING ROOM AIR. NO RESP DISTRESS. NO PAIN. NO DISTRESS. IV IN TAMMY MIDLINE. BED REMAINS LOW AND LOCKED, HOB ELEVATED IN SEMI FOWLERS, SIDE RAILS UP X2,WILL ENDORSE TO ONCOMING SHIFT.
--- NOTE | 2020-10-08 07:21 | NUR ---
RN OPENING NOTE RECEIVED PATIENT RESTING IN BED. PATIENT IS A/O X4. PATIENT IS BREATHING EVENLY AND NONLABORED ON ROOM AIR. NO SIGNS OF DISTRESS NOTED. PATIENT DOES NOT COMPLAIN OF PAIN AT THIS TIME. PATIENT HAS IV ACCESS LEFT UPPER ARM MIDLINE PATENT AND INTACT. PATIENT HAS DRESSING ON R GREAT TOE C/D/I. SAFETY MEASURES ARE IN PLACE. BED LOW LOCKED CALL LIGHT WITHIN REACH. WILL CONTINUE TO MONITOR
[2020-10-08] MEDS: INSULIN REGULAR, HUMAN 100 UNIT/ML 3 ML VIAL SQ PRN ×4 (07:32→22:28)
[2020-10-08] MEDS: BLOOD SUGAR DIAGNOSTIC 1 EACH STRIP IN SCH ×4 (07:32→22:28)
[2020-10-08] MEDS: EZETIMIBE 10 MG TABLET PO SCH (08:34)
[2020-10-08] MEDS: SPIRONOLACTONE 25 MG TABLET PO SCH (08:34)
[2020-10-08] MEDS: ASPIRIN EC 81 MG TABLET.DR PO SCH (08:34)
[2020-10-08] MEDS: METFORMIN 500 MG TABLET PO SCH ×2 (08:34→16:11)
[2020-10-08] MEDS: DULOXETINE HCL 30 MG CAPSULE.DR PO SCH (08:34)
[2020-10-08] MEDS: FUROSEMIDE 40 MG TABLET PO SCH (08:34)
[2020-10-08] MEDS: ALLOPURINOL 100 MG TABLET PO SCH ×2 (08:34→16:11)
[2020-10-08] MEDS: METOPROLOL SUCCINATE 50 MG TAB.SR.24H PO SCH (08:35)
[2020-10-08 09:11] VITALS: BP 106/60
[2020-10-08 16:22] VITALS: BP 110/76
--- NOTE | 2020-10-08 18:19 | NUR ---
RN NOTE PATIENT HAS SURGICAL PROCEDURE TOMORROW, STATED OKAY TO HOLD LOVENOX.
--- NOTE | 2020-10-08 18:22 | NUR ---
RN CLOSING NOTE PATIENT RESTING IN BED. PATIENT IS A/O X4. PATIENT IS BREATHING EVENLY AND NONLABORED ON ROOM AIR. NO SIGNS OF DISTRESS NOTED. PATIENT DOES NOT COMPLAIN OF PAIN AT THIS TIME. PATIENT HAS IV ACCESS LEFT UPPER ARM MIDLINE PATENT AND INTACT. PATIENT HAS DRESSING ON R GREAT TOE C/D/I. WOUND CARE PERFORMED DURING SHIFT. ALL MEDICATIONS GIVEN ORDERED. PATIENT WILL NEED TO BE NPO AFTER MIDNIGHT DUE TO PROCEDURE, WILL ENDORSE. SAFETY MEASURES ARE IN PLACE. BED LOW LOCKED CALL LIGHT WITHIN REACH. WILL ENDORSE TO ONCOMING SHIFT
[2020-10-08] MEDS: ENOXAPARIN SODIUM 40 MG/0.4 ML DISP.SYRIN SQ SCH (18:31)
--- NOTE | 2020-10-08 19:40 | NUR ---
RN OPENING NOTE RECEIVED PATIENT RESTING IN BED. PATIENT IS A/O X4. PATIENT IS BREATHING EVENLY AND NONLABORED ON ROOM AIR. PATIENT DENIES PAIN AT THIS TIME. PATIENT AMBULATORY WITH STEADY GAIT. PATIENT HAS IV ACCESS LEFT UPPER ARM MIDLINE PATENT AND INTACT. PATIENT HAS DRESSING ON R GREAT TOE C/D/I AWAITING PARTIAL AMPUTATION. PT. AWARE HE WILL BE NPO AFTER MIDNIGHT FOR R/T PARTIAL (R) GREAT TOE AMPUTATION, VERBALIZES UNDERSTANDING. SAFETY MEASURES ARE IN PLACE. BED IN LOWEST POSITION, LOCKED, CALL LIGHT WITHIN REACH. NO ACUTE DISTRESS NOTED AT THIS TIME.
[2020-10-08] MEDS: ATORVASTATIN 40 MG TABLET PO SCH (21:30)
--- NOTE | 2020-10-08 22:00 | NUR ---
RN NOTE POC GLUCOSE TAKEN PER MD ORDER ACHS, LEVEL OF 130 Mg/dL. NO INSULIN COVERAGE NEEDED PER SLIDING SCALE.
[2020-10-09] VITALS: BP 98/56
[2020-10-09] MEDS: CLINDAMYCIN 600 MG in IV D5W 50 ML IV SCH ×3 (03:52→20:05)
[2020-10-09 04:00] VITALS: BP 112/59
--- NOTE | 2020-10-09 06:31 | NUR ---
MS RN OPENING NOTE RECEIVED REPORT FROM ROSETTA BUTTS @ [facility]. VS TAKEN. TAMMY MIDLINE INTACT, PATENT AND FLUSHING WELL. WILL ENDORSE TO AM NURSE
--- NOTE | 2020-10-09 06:43 | NUR ---
RN CLOSING NOTE PATIENT RESTING IN BED. PATIENT IS A/O X4. PATIENT IS BREATHING EVENLY AND NONLABORED ON ROOM AIR. NO SIGNS OF RESP DISTRESS NOTED. PATIENT DENIES ANY PAIN AT THIS TIME. ALL VITAL SIGNS WNL. PT. IS AMBULATORY WITH STEADY GAIT, BRP. POC GLUCOSE LEVEL OF 130 Mg/dL at 2200, NO INSULIN COVERAGE NEEDED PER SLIDING SCALE. PATIENT HAS IV ACCESS LEFT UPPER ARM MIDLINE PATENT AND INTACT. PATIENT HAS DRESSING ON R GREAT TOE C/D/I. ALL MEDICATIONS GIVEN AND TOLERATED ORDERED. PATIENT NPO AFTER MIDNIGHT DUE TO (R) GREAT TOE PARTIAL AMPUTATION SCHEDULED FOR 10/09/20 AT 1000. CONSENT SIGNED AND VERIFIED IN PT. CHART. SAFETY MEASURES ARE IN PLACE. BED LOCKED IN LOWEST POSITION, CALL LIGHT WITHIN REACH. PATIENT TRANSFERRED TO [address] [place] [address], REPORT GIVEN TO EHSAN BUTTS. Addendum: 10/09/20 at 0649 by MARIAMA HUERTAS RN ALL PT. BELONGINGS AND MEDICATIONS ACCOUNTED FOR AND TRANSFERRED WITH PT. PT. CHART HANDED TO NURSE.
[2020-10-09 07:12] LABS: BASOPHILS # (AUTO) 0.1 K/uL (0.0-0.2); EOSINOPHILS % (AUTO) 3.8 % (0.0-6.0); HEMATOCRIT 41 % (39-51); HEMOGLOBIN 13.5 g/dL (13.5-17.5); MEAN CORPUSCULAR HGB CONC 33 g/dl (31.0-36.0); MEAN CORPUSCULAR VOLUME 87 fL (80-96); MONOCYTES # (AUTO) 0.9 K/uL (0.1-1.30); MONOCYTES % (AUTO) 8.4 % (2.0-12.0); NEUTROPHILS # (AUTO) 7.1 K/uL (1.8-8.9); NEUTROPHILS % (AUTO) 67.8 % (43.0-81.0); PLATELET COUNT (AUTO) 340 K/uL (150-450); RED BLOOD CELL COUNT(AUTO) 4.71 MIL/uL (4.5-6.0); WHITE BLOOD COUNT (AUTO) 10.5 K/uL (4.3-11.0)
[2020-10-09 07:33] VITALS: BP 117/70
[2020-10-09] MEDS: BLOOD SUGAR DIAGNOSTIC 1 EACH STRIP IN SCH ×4 (07:35→21:16)
--- NOTE | 2020-10-09 07:39 | NUR ---
BS 113
[2020-10-09 07:43] LABS: CALCIUM, SERUM 9.3 mg/dL (8.5-10.1); POTASSIUM 4.2 mmol/L (3.5-5.1)
--- NOTE | 2020-10-09 07:45 | NUR ---
MS RN OPENING NOTES RECEIVED PATIENT IN BED, AWAKE, A/O X4. PATIENT ON ROOM AIR SATURATING WELL AT THIS TIME; NO SOB PRESENT. NO COMPLAINS OF PAIN. TAMMY MIDLINE IN PLACE AND INTACT. PATIENT NPO EXCEPT MEDS AWAITING PROCEDURE. SAFETY PRECAUTIONS IN PLACE; BED IN LOW POSITION AND LOCKED, RAILS UP X2, CALL LIGHT WITHIN REACH. WILL CONTINUE TO MONITOR PATIENT.
[2020-10-09] MEDS: METOPROLOL SUCCINATE 50 MG TAB.SR.24H PO SCH (08:17)
[2020-10-09] MEDS: SPIRONOLACTONE 25 MG TABLET PO SCH (08:18)
[2020-10-09] MEDS: FUROSEMIDE 40 MG TABLET PO SCH (08:18)
[2020-10-09] MEDS: ASPIRIN EC 81 MG TABLET.DR PO SCH (08:19)
[2020-10-09] MEDS: METFORMIN 500 MG TABLET PO SCH ×2 (08:19→16:36)
[2020-10-09] MEDS: DULOXETINE HCL 30 MG CAPSULE.DR PO SCH (08:19)
[2020-10-09] MEDS: EZETIMIBE 10 MG TABLET PO SCH (08:19)
[2020-10-09] MEDS: ALLOPURINOL 100 MG TABLET PO SCH ×2 (08:19→16:36)
[2020-10-09 08:36] VITALS: BP 100/62
[2020-10-09] MEDS ORDERED: ANESTHESIA TRAY IN PYXIS 1 EA TRAY MC ONE (09:34)
[2020-10-09] MEDS ORDERED: LIDOCAINE 1% INJ 50 ML MDV IJ ONE (09:34)
[2020-10-09] MEDS ORDERED: BUPIVACAINE MPF 0.5% W/EPI INJ 30 ML VIAL ONE (09:35)
[2020-10-09] MEDS ORDERED: BUPIVACAINE 0.5 % PF 150 MG/30 ML VIAL ONE (09:35)
--- NOTE | 2020-10-09 09:42 | NUR ---
MS RN NOTES PATIENT TAKEN TO OR FOR PROCEDURE
[2020-10-09] MEDS ORDERED: FENTANYL PF 100MCG/2ML AMPUL ONE (09:57)
--- NOTE | 2020-10-09 11:57 | NUR ---
MS RN NOTES OR NURSE DID ACCU-CHECK AND INFORMED ME WITH BS OF 121.
--- NOTE | 2020-10-09 12:17 | NUR ---
MS RN NOTES PATIENT BACK FROM OR. MEDICALLY STABLE. VS WITHIN NORMAL LIMITS. MD ORDERS: 10/09/20 POST PROCEDURE 1. RESUME ALL MEDICATIONS 2. ELEVATE RIGHT FOOT 3. REINFORCE DRESSING NEEDED 4. NWB ON RIGHT FOOT FOR 24 HOURS POST SURGERY 5. PLEASE DISPENSE SURGICAL SHOE AFTER 24 HOURS
[2020-10-09 16:31] VITALS: BP 99/54
[2020-10-09] MEDS: ENOXAPARIN SODIUM 40 MG/0.4 ML DISP.SYRIN SQ SCH (18:05)
--- NOTE | 2020-10-09 18:06 | NUR ---
MS RN NOTES 1900 LOVENOX HELD DUE TO RECENT PROCEDURE AND PATIENT HAVING A BLOODY DRESSING. PER MD REINFORCED THE DRESSING WITH ABD PAD AND KERLIX.
--- NOTE | 2020-10-09 18:49 | NUR ---
MS RN CLOSING NOTES PATIENT REMAINS IN BED, ASLEEP, A/O X4. PATIENT ON ROOM AIR SATURATING WELL AT THIS TIME; NO SOB PRESENT. NO COMPLAINS OF PAIN. TAMMY MIDLINE IN PLACE AND INTACT. RIGHT LEG ELEVATED POST PROCEDURE. ALL NEEDS ATTENDED DURING THE DAY. SAFETY PRECAUTIONS IN PLACE; BED IN LOW POSITION AND LOCKED, RAILS UP X2, CALL LIGHT WITHIN REACH. WILL ENDORSE TO AWNING ASSEMBLER NURSE.
--- NOTE | 2020-10-09 19:18 | NUR ---
CONTINUITY OF CARE Patient sitting up in bed, awake, A/O x4. Right foot covered with gauze, some fresh blood. Per BECKIE Arango patient ambulated and dressing was reinforced. Education given to patient NWB for 24 hours right foot, patient verbalized understanding. No c/o pain at this time. Good appetite. Requesting sandwich with evening meds. Fall precaution maintained. Call light within reach.
[2020-10-09 20:00] VITALS: BP 103/70
[2020-10-09] MEDS: ATORVASTATIN 40 MG TABLET PO SCH (21:14)
[2020-10-09] MEDS: INSULIN REGULAR, HUMAN 100 UNIT/ML 3 ML VIAL SQ PRN (21:15)
--- NOTE | 2020-10-09 21:17 | NUR ---
ACCUCHECK FSBG 113mg/dl Held insulin dose per parameters.
[2020-10-10] MEDS: CLINDAMYCIN 600 MG in IV D5W 50 ML IV SCH ×2 (04:59→11:58)
--- NOTE | 2020-10-10 06:17 | NUR ---
END OF SHIFT REPORT Patient is A/O x4. Right foot with gauze in place, able to move right foot, no c/o pain. On IV Clindamycin, Afebrile. TAMMY midline intact. 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 NWB right foot for 24 hours post surgery, patient is aware. Will endorse to oncoming RN.
[2020-10-10] MEDS: INSULIN REGULAR, HUMAN 100 UNIT/ML 3 ML VIAL SQ PRN (06:27)
[2020-10-10] MEDS: BLOOD SUGAR DIAGNOSTIC 1 EACH STRIP IN SCH ×3 (06:28→17:11)
--- NOTE | 2020-10-10 06:29 | NUR ---
ACCUCHECK FSBG 114mg/dl Held insulin dose per parameters.
[2020-10-10 06:58] LABS: BASOPHILS # (AUTO) 0.1 K/uL (0.0-0.2); BASOPHILS % (AUTO) 0.8 % (0.0-2.0); EOSINOPHILS % (AUTO) 3.2 % (0.0-6.0); HEMATOCRIT 41 % (39-51); HEMOGLOBIN 13.1 g/dL (13.5-17.5); LYMPHOCYTES # (AUTO) 1.5 K/uL (0.8-4.8); LYMPHOCYTES % (AUTO) 13.3 % (20.0-44.0); MEAN CORPUSCULAR HGB CONC 32 g/dl (31.0-36.0); MEAN CORPUSCULAR VOLUME 88 fL (80-96); MONOCYTES % (AUTO) 8.6 % (2.0-12.0); NEUTROPHILS # (AUTO) 8.4 K/uL (1.8-8.9); NEUTROPHILS % (AUTO) 74.1 % (43.0-81.0); PLATELET COUNT (AUTO) 319 K/uL (150-450); RED BLOOD CELL COUNT(AUTO) 4.65 MIL/uL (4.5-6.0); WHITE BLOOD COUNT (AUTO) 11.3 K/uL (4.3-11.0)
[2020-10-10 07:18] LABS: ALBUMIN 2.9 g/dL (3.4-5.0); BILIRUBIN,TOTAL 0.4 mg/dL (0.2-1.0); CALCIUM, SERUM 9.2 mg/dL (8.5-10.1); CREATININE 0.8 mg/dL (0.6-1.3); MAGNESIUM 2.2 mg/dL (1.8-2.4); POTASSIUM 4.6 mmol/L (3.5-5.1); TOTAL PROTEIN, SERUM 6.6 g/dL (6.4-8.2)
--- NOTE | 2020-10-10 07:33 | NUR ---
MS RN OPENING NOTES RECEIVED PATIENT IN BED, ASLEEP. PATIENT ON ROOM AIR SATURATING WELL AT THIS TIME; NO SOB PRESENT. NO S/S OF PAIN SUCH FACIAL GRIMACING, GUARDING OR MOANING NOTED. TAMMY MIDLINE IN PLACE AND INTACT. DRESSING IN PLACE; WAS REINFORCED BY DIRECTOR CASE MANAGEMENT NURSE. SAFETY PRECAUTIONS IN PLACE; BED IN LOW POSITION AND LOCKED, RAILS UP X2, CALL LIGHT WITHIN REACH. WILL CONTINUE TO MONITOR PATIENT.
[2020-10-10] MEDS: FUROSEMIDE 40 MG TABLET PO SCH (08:33)
[2020-10-10] MEDS: METFORMIN 500 MG TABLET PO SCH ×2 (08:34→16:57)
[2020-10-10] MEDS: ASPIRIN EC 81 MG TABLET.DR PO SCH (08:34)
[2020-10-10] MEDS: ALLOPURINOL 100 MG TABLET PO SCH ×2 (08:35→16:57)
[2020-10-10] MEDS: SPIRONOLACTONE 25 MG TABLET PO SCH (08:35)
[2020-10-10] MEDS: DULOXETINE HCL 30 MG CAPSULE.DR PO SCH (08:36)
[2020-10-10] MEDS: EZETIMIBE 10 MG TABLET PO SCH (08:39)
[2020-10-10] MEDS: METOPROLOL SUCCINATE 50 MG TAB.SR.24H PO SCH (09:00)
--- NOTE | 2020-10-10 18:23 | NUR ---
MS SAFETY LEADER NOTES PATIENT DISCHARGED TO SNF IN MEDICALLY STABLE CONDITION. PATIENT A/O X4 AND ABLE TO MAKE NEEDS KNOWN. ALL DISCHARGE DOCUMENTATION READY, TEACHING REGARDING DISCHARGE AND PHYSICIAN ORDER PROVIDED; PATIENT VERBALIZED UNDERSTANDING. DISCHARGE PAPERS SIGNED. BELONGINGS ACCOUNTED FOR AND FORM SIGNED WELL. PERSONAL MEDS PICKED UP FROM THE PHARMACY AND RETURNED TO PATIENT. FACILITY CALLED AND REPORT GIVEN TO RN. IV ACCESS STAYED IN PLACE IN ORDER TO CONTINUE IV ANTIBIOTICS PER MD ORDER. PATIENT LEFT THE UNIT AT 1800 VIA GURNEY AND ACCOMPANIED BY 2 cupola repairer.
== END 2020-10-10 18:00 | DRG 314 ==
LOC: ER 13:04 → MEDSG1 18:08 → MED 10-09 06:23
PROVIDERS: ADMIT Nurse Practitioner Acute Care
PROC: 0JBQ0ZZ Excision of Right Foot Subcutaneous Tissue and Fascia, Open Approach (ICD-10-PCS; 2020-10-05)
PROC: 05HC33Z Insertion of Infusion Device into Left Basilic Vein, Percutaneous Approach (ICD-10-PCS; 2020-10-06)
PROC: 0Y6P0Z1 Detachment at Right 1st Toe, High, Open Approach (ICD-10-PCS; principal; 2020-10-09)
DX: E11.69 Type 2 diabetes mellitus with other specified complication (principal); I50.43 Acute on chronic combined systolic (congestive) and diastolic (congestive) heart failure; B48.8 Other specified mycoses; E44.0 Moderate protein-calorie malnutrition; M86.171 Other acute osteomyelitis, right ankle and foot; E11.40 Type 2 diabetes mellitus with diabetic neuropathy, unspecified; E66.01 Morbid (severe) obesity due to excess calories; I48.91 Unspecified atrial fibrillation; E87.5 Hyperkalemia; L02.611 Cutaneous abscess of right foot; L03.115 Cellulitis of right lower limb; E11.621 Type 2 diabetes mellitus with foot ulcer; L97.519 Non-pressure chronic ulcer of other part of right foot with unspecified severity; B35.3 Tinea pedis; E88.09 Other disorders of plasma-protein metabolism, not elsewhere classified; I11.0 Hypertensive heart disease with heart failure; I25.10 Atherosclerotic heart disease of native coronary artery without angina pectoris; Z88.1 Allergy status to other antibiotic agents; D64.9 Anemia, unspecified; E78.00 Pure hypercholesterolemia, unspecified; E78.5 Hyperlipidemia, unspecified; F15.90 Other stimulant use, unspecified, uncomplicated; F32.9 Major depressive disorder, single episode, unspecified; Z68.33 Body mass index [BMI] 33.0-33.9, adult; Z20.822 Contact with and (suspected) exposure to COVID-19; Z59.0 Homelessness; Z79.84 Long term (current) use of oral hypoglycemic drugs; Z79.899 Other long term (current) drug therapy; R26.2 Difficulty in walking, not elsewhere classified
CPT/HCPCS: 36410; 36415; 71045-TC; 73630-TC; 73660-TC; 73720-TC; 80048-TC; 80053-TC; 80061-TC; 80076-TC; 82962-TC; 83605-TC; 83735-TC; 84100-TC; 84443-TC; 84484-TC; 85025-TC; 85730-TC; 86850-TC; 87040-TC; 87070-TC; 87075-TC; 87081-TC; 87186-TC; 88305-TC; 88311-TC; 93307-TC; 97116-TC; 97530-TC; A6209; A6253; A6403; A6407; A9575; C9803; G0378; J1650; J1815; J2543; J2704; J3010; J3475; J3490; J7030; J7050; J7060; U0003